=== PATIENT | female | born 1945 | race Caucasian/White ===

== ENCOUNTER 2016-03-19 11:13 | Outpatient (RCR) | payer MEDICARE ==
[~2016-03-19 11:13] MED LIST: ASPI-86 PO; BENICAR PO; CALC1CAP19 PO; CELEBREX PO; DIPH25TA82 PO; FEXO-104 PO; HYDR-3583 PO; LEVO5TAB2 PO; LEVO88TA28 PO; MNTL10T PO; MULT-305 PO; NASONEX; NF-TRA/ACE PO; OLME1TAB22 PO; PANT40TA PO; POTA10CA43 PO; POTA20TA7 PO; PRILOSEC; QUIN324C PO; SIMV80TA3 PO; SLMFT1E INH; VITA150T PO; [UNRECOGNIZED DRUG - CODE] PO; [UNRECOGNIZED DRUG - OTHER] PO
[2016-04-17] MEDS ORDERED: BACL10TA PO (12:59)
[2016-04-17] MEDS ORDERED: MELA1TAB20 PO (12:59)
[2016-04-17] MEDS ORDERED: BIOT800T PO (12:59)
[2016-04-17] MEDS ORDERED: FLUT9.9S NSEACH (12:59)
[2016-04-17] MEDS ORDERED: EPLE50TA3 PO (12:59)
[2016-04-17] MEDS ORDERED: CELE-63 PO (12:59)
[2016-04-17] MEDS ORDERED: LOSA100T28 PO (12:59)
[2016-04-17] MEDS ORDERED: LEVO5TAB12 PO (12:59)
[2016-04-17] MEDS ORDERED: FURO40TA4 PO (12:59)
[2016-04-17] MEDS ORDERED: ASPI-586 PO (12:59)
[2016-04-17] MEDS ORDERED: VITA200T7 PO (12:59)
[2016-04-17] MEDS ORDERED: ASCO-262 PO (12:59)
[2016-04-17] MEDS ORDERED: CHOL200014 PO (13:00)
== END 2016-06-17 | disposition home or self-care (01) ==
LOC: EDSTATUS 11:13 → LAB 11:13
PROVIDERS: ATTEND Internal Medicine
DX: R19.7 Diarrhea, unspecified (principal)
CPT/HCPCS: 87324

== ENCOUNTER 2016-04-14 15:31 | Outpatient (RCR) | payer MEDICARE ==
[2016-04-17] MEDS ORDERED: BIOT800T PO (12:59)
[2016-04-17] MEDS ORDERED: FLUT9.9S NSEACH (12:59)
[2016-04-17] MEDS ORDERED: EPLE50TA3 PO (12:59)
[2016-04-17] MEDS ORDERED: LEVO5TAB12 PO (12:59)
[2016-04-17] MEDS ORDERED: ASCO-262 PO (12:59)
[2016-04-17] MEDS ORDERED: LOSA100T28 PO (12:59)
[2016-04-17] MEDS ORDERED: FURO40TA4 PO (12:59)
[2016-04-17] MEDS ORDERED: BACL10TA PO (12:59)
[2016-04-17] MEDS ORDERED: VITA200T7 PO (12:59)
[2016-04-17] MEDS ORDERED: CELE-63 PO (12:59)
[2016-04-17] MEDS ORDERED: MELA1TAB20 PO (12:59)
[2016-04-17] MEDS ORDERED: ASPI-586 PO (12:59)
[2016-04-17] MEDS ORDERED: CHOL200014 PO (13:00)
== END 2016-07-13 | disposition home or self-care (01) ==
LOC: LAB 15:31
PROVIDERS: ATTEND Internal Medicine
DX: R19.7 Diarrhea, unspecified (principal)
CPT/HCPCS: 82274; 87045; 87046

== ENCOUNTER 2016-04-17 05:50 | Outpatient (CLI) | payer MEDICARE ==
[~2016-04-17] VITALS: Ht 153.7 cm; Wt 63.5 kg
[2016-04-17] MEDS ORDERED: EPLE50TA3 PO (12:59)
[2016-04-17] MEDS ORDERED: BACL10TA PO (12:59)
[2016-04-17] MEDS ORDERED: ASPI-586 PO (12:59)
[2016-04-17] MEDS ORDERED: BIOT800T PO (12:59)
[2016-04-17] MEDS ORDERED: CELE-63 PO (12:59)
[2016-04-17] MEDS ORDERED: LEVO5TAB12 PO (12:59)
[2016-04-17] MEDS ORDERED: LOSA100T28 PO (12:59)
[2016-04-17] MEDS ORDERED: MELA1TAB20 PO (12:59)
[2016-04-17] MEDS ORDERED: ASCO-262 PO (12:59)
[2016-04-17] MEDS ORDERED: FLUT9.9S NSEACH (12:59)
[2016-04-17] MEDS ORDERED: FURO40TA4 PO (12:59)
[2016-04-17] MEDS ORDERED: VITA200T7 PO (12:59)
[2016-04-17] MEDS ORDERED: CHOL200014 PO (13:00)
--- NOTE | 2016-04-18 06:53 | Pre-Op Note & Conscious Sedat ---
Pre-Operative Progress Note H&P Reviewed The H&P was reviewed, patient examined and no changes noted. Date H&P Reviewed: Apr 18, 2016 Time H&P Reviewed: 06:53 Conscious Sedation Pre-Proced ASA Class: 2 Airway Mallampati Classification: (pilot station appropriate class) I. II. III, IV Lungs Heart ASA score ASA 1: a normal healthy patient ASA 2: a patient with a mild systemic disease (mid diabetes, controlled hypertension, obesity ASA 3: a patient with a severe systemic disease that limits activity (angina , COPD, prior Myocardial infarction) ASA 4: a patient with an incapacitating disease that is a constant threat to life (CHF, renal failure) ASA 5: a moribund patient not expected to survive 24 hrs. (ruptured aneurysm) ASA 6: a declared brain patient whose organs are being harvested. For emergent operations, add the letter E after the classification Grade 3 Sedation Plan: Analgesia, Amnesia, Plan communicated to team members, Discussed options with patient/fam, Discussed risks with patient/fam Note The patient is an appropriate candidate to undergo the planned procedure, sedation, and anesthesia. The patient immediately re-assessed prior to indication. LETTY MARIA MD Apr 18, 2016 06:53
== END 2016-04-17 13:02 ==
LOC: PREOP 05:50
PROVIDERS: ATTEND Internal Medicine
DX: Z01.818 Encounter for other preprocedural examination (principal); Z12.11 Encounter for screening for malignant neoplasm of colon

== ENCOUNTER 2016-04-18 06:57 | Day surgery (SDC) | payer MEDICARE ==
[~2016-04-18] VITALS: Ht 153.7 cm; Wt 63.5 kg
[~2016-04-18 06:57] MED LIST changes: +ASCO-262 PO; +ASPI-586 PO; +BACL10TA PO; +BIOT800T PO; +CELE-63 PO; +CHOL200014 PO; +EPLE50TA3 PO; +FLUT9.9S NSEACH; +FURO40TA4 PO; +LEVO5TAB12 PO; +LOSA100T28 PO; +MELA1TAB20 PO; +VITA200T7 PO
[2016-04-18] MEDS ORDERED: LIDOCAINE JELLY 2% (XYLOCAINE) 5 ML TUBE MM PRN (07:00)
[2016-04-18] MEDS ORDERED: NALOXONE 0.4 MG/ML 1 ML (NARCAN) VIAL IVP PRN (07:00)
[2016-04-18] MEDS ORDERED: fentaNYL INJECTION 100 MCG/2 ML AMP IVP PRN (07:00)
[2016-04-18] MEDS ORDERED: 1/2 NS IV SOLUTION 1,000 ML IV STA (07:00)
[2016-04-18] MEDS ORDERED: MIDAZOLAM 2 MG/2 ML (VERSED) VIAL IVP PRN (07:00)
[2016-04-18] MEDS ORDERED: FLUMAZENIL (ROMAZICON) 0.1 MG/ML 5 ML VIAL INJ PRN (07:00)
[2016-04-18 07:20] VITALS: BP 137/71
--- NOTE | 2016-04-18 07:26 | HISTORY AND PHYSICAL ---
DICTATING PHYSICIAN: Dr. Santacruz DATE OF ADMISSION: 04/18/2016 Francesca is a 71-year-old white female who reports a several month history of diarrhea initially was improved on Flagyl despite negative C. diff. studies but now there has been recurrence 3 to 4 loose stools per day. She underwent stool for occult blood check, which was positive on 04/14/2016. For ongoing diarrhea with occult positive blood in her stools she is set up for colonoscopy on the . She has not noted any red blood per rectum or melena. It has been a little over 10 years since her last colonoscopy and probably closer to 20. Her weight has been stable. Blood pressure was 98/60. CHEST: Clear. CV: Revealed a regular rate and rhythm without murmur, S3 or S4. EXTREMITIES: Reveal no cyanosis, clubbing, or edema. ABDOMEN: Soft, supple without masses, organomegaly. There is some mild left lower quadrant discomfort to palpation. ASSESSMENT: For further evaluation of diarrhea and occult positive blood in his stool, the patient was set-up for colonoscopy on Prep instructions with the Ramsey-prep kit were given and questions were answered. Job ID: [id number] Dictated Date: 04/16/2016 16:07:00 Rn L And D Date: 04/17/2016 09:08:24/bebe
[2016-04-18] MEDS ORDERED: LIDOCAINE JELLY 2% (XYLOCAINE) 5 ML TUBE ONE (07:33)
[2016-04-18] MEDS ORDERED: fentaNYL INJECTION 100 MCG/2 ML AMP ONE (07:33)
[2016-04-18] MEDS ORDERED: MIDAZOLAM 2 MG/2 ML (VERSED) VIAL ONE (07:34)
[2016-04-18 08:25] VITALS: BP 113/62
[2016-04-18 08:55] VITALS: BP 133/68
--- NOTE | 2016-04-18 12:31 | PROCEDURE REPORT ---
PROCEDURE PHYSICIAN: LETTY MARIA DATE OF PROCEDURE: 04/18/2016 Colonoscopy was performed for screening purposes. PROCEDURE: The patient was placed in left lateral decubitus position. Prior to undergoing colonoscopy, digital rectal evaluation was performed. Anal sphincter tone was normal. The perianal reflux was intact. No abnormalities were noted to digital inspection of the anal canal or distal rectal vault. The colonoscope was then inserted into the rectum and under visualization, advanced to the cecum. The cecum was identified by identification of the ileocecal valve and cecal strap. Distal several centimeters of terminal ileum were inspected as well. Photographic documentation was obtained. A careful inspection was made as the colonoscope was withdrawn. The patient tolerated the procedure well. FINDINGS: There are no evidence for internal or external hemorrhoids and the rectum was unremarkable. The patient had been experiencing diarrhea and is on high-dose nonsteroidal medication in the form of celecoxib. For this reason a biopsy was obtained from the rectum to evaluate for microscopic colitis. Several small sigmoid diverticulum were present, without evidence for haustral hypertrophy or diverticulitis. The sigmoid colon was otherwise unremarkable. The descending colon, splenic flexure, transverse colon, hepatic flexure, ascending colon and cecum were unremarkable as was distal several centimeters of terminal ileum. ASSESSMENT: Mild diverticular disease without evidence for diverticulitis is noted confined to the sigmoid colon. This was an otherwise normal colonoscopy to the cecum, including distal several centimeters of terminal ileum. The patient has been having some diarrhea despite using mwlk-okr-qjexqti Imodium at home. As she is on high-dose nonsteroidal therapy we did obtain a biopsy for microscopic colitis, pending at the time of this dictation. Considering today's findings age and lack of family history for colon cancer will not likely be advocating future screening colonoscopy. Job ID: [id number] Dictated Date: 04/18/2016 08:22:29 Fashion Coordinator Date: 04/18/2016 12:26:20 / bebe
== END 2016-04-18 09:08 | disposition home or self-care (01) ==
LOC: SDC 06:57
PROVIDERS: ATTEND Internal Medicine
DX: Z12.11 Encounter for screening for malignant neoplasm of colon (principal); R19.7 Diarrhea, unspecified; K57.30 Diverticulosis of large intestine without perforation or abscess without bleeding

== ENCOUNTER → 2016-10-23 | Outpatient (CLI) | payer MEDICARE ==
--- NOTE | 2016-10-23 15:55 | Diagnostic Imaging Report ---
Bilateral screening mammogram 2D views with tomosynthesis The current study was also evaluated with a Computer Aided Detection (CAD) system. INDICATION: Screening. No current complaints stated on the questionnaire. COMPARISON: 09/03/2015. FINDINGS: The breasts are composed of heterogeneously dense parenchyma which may decrease mammographic sensitivity. Scattered benign-appearing calcifications are seen. Allowing for technique and positional differences, no suspicious change is seen. IMPRESSION: No significant change. ACR BI-RADS Category 2: Benign findings. Result letter will be mailed to the patient. Note: At least 10% of breast cancer is not imaged by mammography. Dictated by: Dictated on workstation # [id number]
== END ==
LOC: RAD 10:34
PROVIDERS: ATTEND Internal Medicine
DX: Z12.31 Encounter for screening mammogram for malignant neoplasm of breast (principal)
CPT/HCPCS: 77067

== ENCOUNTER → 2017-12-07 | Outpatient (CLI) | payer MEDICARE ==
[~2017-12-07] MED LIST changes: -CHOL200014 PO; +CHOL200085 PO; -LOSA100T28 PO; +LOSA100T8 PO
== END ==
LOC: LAB 14:12
PROVIDERS: ATTEND Internal Medicine
DX: N39.0 Urinary tract infection, site not specified (principal)
CPT/HCPCS: 87077; 87088; 87186

== ENCOUNTER → 2017-12-24 | Outpatient (CLI) | payer MEDICARE ==
--- NOTE | 2017-12-25 19:25 | Diagnostic Imaging Report ---
The current study was also evaluated with a Computer Aided Detection (CAD) system. 3-D tomosynthesis was also performed and reviewed. INDICATION: Digital mammogram bilateral screening. This study was compared to the prior exams of 10/23/2016, 09/03/2015 and 07/26/2014. At this time, there are no current complaints. FINDINGS: There are scattered fibroglandular densities in both breasts which could obscure a lesion. Overall, there does not appear to have been any significant change when compared to the prior exam. No primary or secondary sign of malignancy is noted. IMPRESSION: There is no radiographic evidence for malignancy. ACR BI-RADS Category 1: Negative. Result letter will be mailed to the patient. Note: At least 10% of breast cancer is not imaged by mammography. Dictated by: Dictated on workstation # [id number]
== END ==
LOC: RAD 10:21
PROVIDERS: ATTEND Internal Medicine
DX: Z12.31 Encounter for screening mammogram for malignant neoplasm of breast (principal)
CPT/HCPCS: 77067

== ENCOUNTER → 2018-02-15 | Outpatient (CLI) | payer MEDICARE ==
--- NOTE | 2018-02-15 15:13 | Diagnostic Imaging Report ---
PROCEDURE: MRI left upper extremity without contrast. TECHNIQUE: Multiplanar, multisequence non contrast-enhanced MRI of the left upper extremity was accomplished. INDICATION: Fall with left shoulder pain. COMPARISON: None. FINDINGS: There are mild degenerative changes in the left glenohumeral joint. Rxhebaer-kt-iquosx degenerative changes are seen in the left acromioclavicular joint. There is cranial migration of the humeral head with near-complete loss of the acromiohumeral space. A moderate glenohumeral joint effusion is present, with distention of the superior subscapularis recess. Multiple small joint bodies are present. The largest measures approximately 5 mm in diameter. There are subcortical cyst-like changes at the undersurface of the acromion. There is a full-thickness tear of the supraspinatus and infraspinatus tendons, which appear complete. There is retraction of the tendons approximately 5 cm, medial to the glenohumeral joint. There is marked atrophy of the respective musculature. The subscapularis tendon demonstrates tendinosis with mild intrasubstance tearing. The teres minor tendon appears intact. The long head of the biceps tendon is dislocated medially from the bicipital groove. There is mild tendinopathy of the proximal biceps tendon. The glenoid labrum is suboptimally evaluated in the absence of contrast, but there is likely degenerative tearing. The spinoglenoid and suprascapular notches appear clear. The coracoclavicular and coracoacromial ligaments appear intact. No axillary lymphadenopathy is seen. The soft tissues are otherwise unremarkable. IMPRESSION: 1. Large left shoulder rotator cuff tear, with complete tears of the supraspinatus and infraspinatus tendons and associated muscular atrophy. 2. Intrasubstance tearing and tendinosis of the subscapularis tendon, with medial dislocation of the biceps tendon from the bicipital groove. 3. Moderate left shoulder joint effusion with multiple joint bodies. 4. Complete loss of the acromiohumeral space with degenerative changes at the undersurface of the acromion. Dictated by: Dictated on workstation # [id number]
== END ==
LOC: RAD 11:37
PROVIDERS: ATTEND Orthopaedic Surgery
DX: S46.012A Strain of muscle(s) and tendon(s) of the rotator cuff of left shoulder, initial encounter (principal); M67.814 Other specified disorders of tendon, left shoulder; M19.012 Primary osteoarthritis, left shoulder; W19.XXXA Unspecified fall, initial encounter
CPT/HCPCS: 73221

== ENCOUNTER → 2018-05-21 | Outpatient (CLI) | payer MEDICARE ==
[~2018-05-21] MED LIST changes: +CHOL200014 PO; -CHOL200085 PO; +LOSA100T57 PO; -LOSA100T8 PO
--- NOTE | 2018-05-21 13:40 | Diagnostic Imaging Report ---
EXAM: CT right knee without contrast. DATE: May 21, 2018. INDICATION: 73-year-old female, right knee pain. Surgical planning. COMPARISON: None. TECHNIQUE: Axial CT images of the knee without contrast were obtained. Coronal and sagittal reformats were obtained and provided. Axial CT images at the level of the hip and ankle were also obtained for measurements of femoral version and tibial torsion and surgical planning. FINDINGS: The angle along the femoral neck axis relative to horizontal measures 11 degrees. The angle along the posterior femoral condyles relative to horizontal measures 6 degrees. This is a femoral version angle of 5 degrees. The angle along the posterior tibial condyles relative to horizontal measures 3 degrees. The angle along the intermalleolar axis relative to horizontal measures 35 degrees. This is a tibial torsion angle of 32 degrees. There are limitations of evaluation given lack of coronal and sagittal reformats. This does notably limit assessment of the medial and lateral compartments of the knee. There is severe patellofemoral compartment joint space loss with osteophyte formation. There is a small knee joint effusion. There is a probable ossified intra-articular body posteriorly measuring approximately 8 x 4 mm in size on axial image 112. There is no identified acute fracture. There is no aggressive bone lesion. IMPRESSION: 1. Limitations of evaluation given lack of coronal and sagittal reformats. 2. At least severe patellofemoral compartment osteoarthritis in the right knee with probable ossified intra-articular body posteriorly. 3. Femoral version and tibial torsion measurements as above. Dictated by: Dictated on workstation # [id number]
== END ==
LOC: RAD 09:57
PROVIDERS: ATTEND Orthopaedic Surgery
DX: Z01.818 Encounter for other preprocedural examination (principal); M17.11 Unilateral primary osteoarthritis, right knee
CPT/HCPCS: 73700

== ENCOUNTER 2018-06-09 09:13 | Outpatient (CLI) | payer MEDICARE ==
[~2018-06-09] VITALS: Ht 153.7 cm; Wt 72.6 kg
--- NOTE | 2018-06-09 09:00 | NUR ---
NORM CEMETERY COUNSELOR SHOWN EKG AND VISITED WITH PT, NO NEW ORDERS RECEIVED.
[~2018-06-09 09:13] MED LIST changes: +FLUT9.9S NS; -FLUT9.9S NSEACH
[2018-06-09] MEDS ORDERED: PANT40TA3 PO (09:40)
[2018-06-09] MEDS ORDERED: MULT-178 PO (09:40)
[2018-06-09] MEDS ORDERED: LEVO88TA54 PO (09:40)
[2018-06-09] MEDS ORDERED: VITA1CAP PO (09:40)
[2018-06-09] MEDS ORDERED: CA/D1TAB7 PO (09:40)
[2018-06-09] MEDS ORDERED: BIOT5000 PO (09:40)
[2018-06-09] MEDS ORDERED: MAGN400T7 PO (09:40)
[2018-06-09] MEDS ORDERED: POTA-51 PO (09:40)
[2018-06-09] MEDS ORDERED: CHOL10003 PO (09:40)
[2018-06-09] MEDS ORDERED: VITA-244 PO (09:40)
[2018-06-09] MEDS ORDERED: TRAM1TAB7 PO (09:40)
[2018-06-09] MEDS ORDERED: DILT180C PO (09:40)
[2018-06-09 09:44] VITALS: BP 104/63
[2018-06-09 10:17] LABS: BASOPHILS % (AUTO) 0 % (0-10); EOSINOPHILS % (AUTO) 0 % (0-10); HEMATOCRIT 40 % (35-52); HEMOGLOBIN 13.3 G/DL (11.5-16.0); LYMPHOCYTES # (AUTO) 1.2 X 10^3 (1.0-4.0); LYMPHOCYTES % (AUTO) 21 % (12-44); MEAN CORPUSCULAR HEMOGLOBIN 32 PG (25-34); MEAN CORPUSCULAR HGB CONC 33 G/DL (32-36); MEAN CORPUSCULAR VOLUME 95 FL (80-99); MEAN PLATELET VOLUME 11.3 FL (7.4-10.4); MONOCYTES # (AUTO) 0.7 X 10^3 (0.0-1.0); MONOCYTES % (AUTO) 12 % (0-12); NEUTROPHILS # (AUTO) 3.7 X 10^3 (1.8-7.8); NEUTROPHILS % (AUTO) 67 % (42-75); PLATELET COUNT 202 10^3/uL (130-400); RED CELL DISTRIBUTION WIDTH 12.8 % (10.0-14.5); WHITE BLOOD COUNT 5.5 10^3/uL (4.3-11.0)
[2018-06-09 10:18] LABS: BILIRUBIN,URINE NEGATIVE (NEGATIVE); CLARITY,URINE SLIGHTLY CLOUDY; COLOR,URINE YELLOW; GLUCOSE, URINE (UA) NEGATIVE (NEGATIVE); KETONES,URINE NEGATIVE (NEGATIVE); LEUKOCYTE ESTERASE ,URINE 2+ (NEGATIVE); NITRITE,URINE POSITIVE (NEGATIVE); PH,URINE 6 (5-9); PROTEIN,URINE NEGATIVE (NEGATIVE); UROBILINOGEN,URINE NORMAL (NORMAL)
[2018-06-09 10:27] LABS: BACTERIA,URINE LARGE /HPF; SQUAMOUS EPITHELIAL CELL,UR RARE /HPF
[2018-06-09 10:29] LABS: INR 0.9 (0.8-1.4); PROTHROMBIN TIME PATIENT 12.5 SEC (12.2-14.7)
[2018-06-09 10:35] LABS: ALBUMIN 4.3 GM/DL (3.2-4.5); BILIRUBIN,TOTAL 0.8 MG/DL (0.1-1.0); CALCIUM 9.7 MG/DL (8.5-10.1); CREATININE SERUM 1.26 MG/DL (0.60-1.30); POTASSIUM 4.6 MMOL/L (3.6-5.0); TOTAL PROTEIN 6.8 GM/DL (6.4-8.2)
[2018-06-09 10:55] LABS: ERYTHROCYTE SEDIMENTATION RATE 20 MM/HR (0-30)
--- NOTE | 2018-06-09 11:06 | Diagnostic Imaging Report ---
INDICATION: Evaluation prior to orthopedic surgery, knee replacement. TECHNIQUE: Two view chest 10:17 AM CORRELATION STUDY: 06/11/2012 FINDINGS: The heart size, mediastinal configuration and pulmonary vasculature are within normal limits. The lungs are clear with no consolidating infiltrate. There is no significant pleural effusion or pneumothorax. Advanced degenerative changes of the thoracic spine with marked disc space narrowing, endplate sclerosis and osteophyte formation. Partial visualization of a lumbar posterior spinal fixation hardware. [place] screws of the bilateral humeral heads. IMPRESSION: 1. Negative for acute cardiopulmonary abnormality. Dictated by: Dictated on workstation # [id number]
== END 2018-06-09 16:00 ==
LOC: PREOP 09:13
PROVIDERS: ATTEND Orthopaedic Surgery
DX: Z01.810 Encounter for preprocedural cardiovascular examination (principal); Z01.811 Encounter for preprocedural respiratory examination; Z01.812 Encounter for preprocedural laboratory examination; Z11.2 Encounter for screening for other bacterial diseases; M17.11 Unilateral primary osteoarthritis, right knee; R53.83 Other fatigue; R82.90 Unspecified abnormal findings in urine
CPT/HCPCS: 36415; 71046; 80053; 81000; 85025; 85610; 85652; 86850; 86900; 86901; 87081; 87088; 93005

== ENCOUNTER 2018-06-16 05:58 | Inpatient (IN) | payer MEDICARE ==
--- NOTE | 2018-06-07 11:14 | HISTORY AND PHYSICAL ---
DATE OF SERVICE: DATE OF ADMISSION: 06/16/2018 REASON FOR ADMISSION: Right total knee arthroplasty. HISTORY OF PRESENT ILLNESS: The patient is a 73-year-old female with longstanding progressive right knee pain. Radiographs reveal severe medial and patellofemoral arthrosis. She has undergone treatment with injections, arthroscopy and rest as well as anti-inflammatories without relief. Due to functional impairment and failure to improve with conservative measures, the patient elected to proceed with surgical intervention. REVIEW OF SYSTEMS: No chest pain, no shortness of breath. No dysuria. PAST MEDICAL HISTORY: Arthritis, thyroid disease, asthma, pancreatitis, seasonal rhinitis, lactose intolerance. PAST SURGICAL HISTORY: Cholecystectomy, bilateral rotator cuff, hysterectomy, foot surgery. SOCIAL HISTORY: The patient drinks alcohol rarely. Denies tobacco use. FAMILY HISTORY: Significant for hypertension, congestive heart failure. PRIMARY CARE PROVIDER: Dr. Santacruz. MEDICATIONS: 1. Potassium. 2. Pantoprazole. 3. Celebrex. 4. Levothyroxine. 5. Losartan. 6. Indapamide. 7. Levocetirizine. 8. Furosemide. 9. Nasonex. 10. Baclofen. ALLERGIES: SULFA and NEURONTIN. PHYSICAL EXAMINATION: GENERAL: The patient is well developed, well-nourished, in no acute distress. HEENT: Normocephalic, atraumatic. Pupils are equal, round, reactive to light. Oropharynx is clear. NECK: Supple, no lymphadenopathy. LUNGS: Clear to auscultation bilaterally. HEART: Regular rate and rhythm. ABDOMEN: Soft, nontender, nondistended. EXTREMITIES: The right knee demonstrates varus alignment. There is a slight effusion. No skin lesions are noted. The patient ambulates with an antalgic gait and needs assistance to arise from a seated position. There is no varus valgus laxity. Negative anterior and posterior drawer. Range of motion 0/3/125. IMPRESSION: Severe right knee osteoarthritis, unresponsive to conservative measures. PLAN: Right total knee arthroplasty. The risks, benefits, options, ramifications and recovery were discussed at length with the patient. She understands and wishes to proceed. Of note, she will require regular inpatient admission for pain management as well as gait abnormalities and weakness and associated comorbidities. Job ID: [id number] DocumentID: [id number] Dictated Date: 06/07/2018 09:32:58 Sheeting Puller Date: 06/07/2018 11:13:55 Dictated By: PATTY DAMIAN MD
--- NOTE | 2018-06-09 16:51 | NUR ---
MED REC WAS UPDATED BY [facility] NURSE AND FAXED TO ME FOR VERIFICATION. I REQUESTED A MED LIST TO BE FAXED OVER FROM [email or web address]. AFTER COMPARING THAT LIST TO WHAT WAS ENTERED I NEED TO CLARIFY WITH THE PATIENT THE BACLOFEN DIRECTIONS. ALSO SHE HAS NOT FILLED DILTIAZEM SINCE DECEMBER FOR A 60 DAY SUPPLY, AND THERE IS NO RECORD OF THE ULTRACET BEING FILLED. I CALLED THE PATIENT THIS AFTERNOON HOWEVER GOT AN ANSWERING MACHINE. I WILL TRY TO CONTACT THE PATIENT AGAIN TOMORROW FOR CLARIFICATION. I LEFT ALL THE OTC MEDS THEY WERE REPORTED BY [facility]. Addendum: 06/10/18 at 1341 by LINO BELLO [facility] CALLED AND SPOKE WITH THE PATIENT TODAY, SHE STATES SHE BROUGHT IN AN UPDATED MED LIST TO [facility] YESTERDAY AFTERNOON. [facility] NURSE CALLED AND SAID THERE WERE NO CHANGES FROM WHAT WAS ENTERED INTO THE COMPUTER. I VERIFIED THE THREE MEDICATIONS I HAD QUESTIONS ABOUT AND LEFT EVERYTHING ELSE IT WAS. SHE STATES SHE DOES TAKE HER BACLOFEN AT BEDTIME, SCHEDULED. SHE STATES THE ULTRACET IS SOMETHING SHE HAS NOT FILLED FOR QUITE SOME TIME BUT DOES HAVE IT ONE HAND AND RARELY TAKES IT. SHE STATES SHE DOES TAKE HER DILTIAZEM DAILY HOWEVER IT IS PAST DUE FOR REFILLS. I NOTED THE PAST DUE FILL DATE. [facility] FILLED: 06-04-18 PROTONIX 40MG DAILY #30 05-26-18 EPLERENONE 50MG DAILY #30 05-11-18 SYNTHROID 88MCG DAILY #90 05-11-18 XYZAL 5MG DAILY #90 05-11-18 BACLOFEN 10MG HS PRN #30 05-11-18 CELEBREX 200MG BID #90 05-11-18 FUROSEMIDE 40MG DAILY #90 04-24-18 FLONASE DAILY #16 04-06-18 KLOR-CON M20 BID #180 03-18-18 LOSARTAN 100MG DAILY #90 01-24-18 DILTIAZEM ER 180MG CAP #60 HS OTC MEDS REPORTED AT [facility]: [facility] MELATONIN MAG OX B COMPLEX VITAMIN E VITAMIN D CALTRATE BIOTIN VITAMIN C
[~2018-06-16] VITALS: Ht 153.7 cm; Wt 72.6 kg
[~2018-06-16 05:58] MED LIST changes: +BIOT5000 PO; +CA/D1TAB7 PO; +CHOL10003 PO; +DILT180C PO; +LEVO88TA54 PO; +MAGN400T7 PO; +MULT-178 PO; +PANT40TA3 PO; +POTA-51 PO; +TRAM1TAB7 PO; +VITA-244 PO; +VITA1CAP PO
[2018-06-16] MEDS ORDERED: LACTATED RINGERS 1,000 ML IV PRN (06:13)
[2018-06-16] MEDS ORDERED: CEFUROXIME INJECTION 1,500 MG in WATER (STERILE) FOR INJECTION 15 ML IV ONE (06:15)
[2018-06-16 06:25] VITALS: BP 130/64
[2018-06-16] MEDS ORDERED: CATHETER FLUSH 10 ML SYR IV PRN (06:30)
[2018-06-16] MEDS ORDERED: MIDAZOLAM 2 MG/2 ML (VERSED) VIAL ONE (06:45)
[2018-06-16] MEDS ORDERED: proPOfol 200 MG/20 ML (DIPRIVAN) VIAL IV ONE (06:45)
[2018-06-16] MEDS ORDERED: SEVOFLURANE (ULTANE) 15 ML INHAL SOLN ONE ×5 (06:45→08:57)
[2018-06-16] MEDS ORDERED: ONDANSETRON 4 MG/2 ML (SDV) Z0FRAN ONE (06:45)
[2018-06-16] MEDS ORDERED: DEXAMETHASONE 10 MG/ML (DECADRON) 1 ML VIAL ONE (06:45)
[2018-06-16] MEDS ORDERED: LIDOCAINE PF 2% 5 ML (XYLOCAINE) VIAL ONE (06:45)
[2018-06-16] MEDS ORDERED: BUPIVACAINE 0.25% 30 ML (SENSORCAINE) VIAL ONE (06:50)
[2018-06-16] MEDS ORDERED: fentaNYL INJECTION 100 MCG/2 ML AMP ONE ×2 (06:52→08:01)
--- NOTE | 2018-06-16 07:19 | Progress Note-Pre Operative ---
Pre-Operative Progress Note H&P Reviewed The H&P was reviewed, patient examined and no changes noted. Date Seen by Provider: Jun 16, 2018 Time Seen by Provider: 07:11 Date H&P Reviewed: Jun 16, 2018 Time H&P Reviewed: 07:11 Pre-Operative Diagnosis: right knee primary osteoarthritis PATTY DAMIAN MD Jun 16, 2018 07:19
--- NOTE | 2018-06-16 07:20 | Progress Note-Post Operative ---
Post-Operative Progess Note Surgeon (s)/Radio Electronics Technician (s) Surgeon PATTY DAMIAN MD Radio Electronics Technician: Go Wang Pre-Operative Diagnosis right knee primary osteoarthritis Post-Operative Diagnosis right knee primary osteorthritis Procedure & Operative Findings Date of Procedure 06/16/18 Procedure Performed/Findings right total knee arthroplasty Anesthesia Type GETA plus regional Estimated Blood Loss Estimated blood loss (mL): minimal Specimens/Packing Specimens Removed none Packing: none PATTY DAMIAN MD Jun 16, 2018 07:20
[2018-06-16] MEDS ORDERED: OXYC1TAB87 PO (07:21)
--- NOTE | 2018-06-16 07:24 | D/C HH Face to Face Order ---
D/C Face to Face Orders Instructions for Patient Via [facility], Patient Instructions/FollowUp: three weeks Physician to follow Patient: three weeks Discharge Diet for Home: Regular Diet Patient Data-Allergies,Ht & Wt Patient Allergies: Coded Allergies: Tomato (Verified Allergy, Intermediate, HIVES, 01/21/11) adhesive tape *RETIRED-12/12/11 (Verified Allergy, RASH, 01/21/11) Sulfa(Sulfonamide Antibiotics) (Verified Adverse Reaction, Intermediate, NAUSEA,, 01/15/11) lactose (Unverified Adverse Reaction, Intermediate, 06/14/12) FROM UNCODED ALLERGIES Uncoded Allergies: CHOCOLATE (Adverse Reaction, Intermediate, 01/21/11) DIARRHEA, AND HIVES Height (Feet): 5 Height (Inches): 0.50 Weight (Pounds): 160 Weight (Ounces): 0.0 Home Health Need/Face to Face Date of Face to Face: Jun 16, 2018 Clinical Findings: Instability, Muscle weakness, Pain with ambulation, Unsteady gait I have seen Pt iryh-ab-[id number]: Yes Discharged To: Home Diagnosis/Conditions: right total knee arthroplasty Patient is Homebound due to: Mary fall risk due to instabilty, Muscle weakness , Pain w/ambulation Homebound Status Due to the above stated illness, injury or surgical procedure (medical condition or diagnosis) and associated clinical findings, the patient is homebound because of his/her inability to leave home except with aid of a supportive device and/or person AND leaving the home requires a considerable and taxing effort or is medically contraindicated. Pt req the following assistanc: [facility] Nursing Orders Home Health Services Order: Physical Therapy-Evaluate & Treat Home Health Infusion Therapy Line Start Date: Jun 16, 2018 Line Start Time: 624 Line Type: Saline Lock Site Location: Wrist Therapy Orders Therapy Orders: Physical Therapy, PT to assess for OT Therapy Specific Orders: Eval assistive deivces, Teach enviro modifications/ safety, Gait training, Increase strength/endurance, Provider maintenance therapy , Restore ROM DC right knee lisandra and apply steri strips on 06/30/18 Certify Stmt I certify that this patient is under my care and that I, a nurse practitioner or a physician; a social science research assistant working with me, had a face to face encounter that - meets the physician face to face encounter requirements with this patient as dated. PATTY DAMIAN MD Jun 16, 2018 07:24
[2018-06-16] MEDS ORDERED: TRANEXAMIC ACID 100 MG/ML 10 ML INJECTION IV ONE (07:25)
[2018-06-16] MEDS ORDERED: ACETAMINOPHEN 325 MG TABLET PO PRN (07:30)
[2018-06-16] MEDS ORDERED: INTRA-ARTICULAR IU ONE ×5 (07:30)
[2018-06-16] MEDS ORDERED: morphine PCA 100 MG/100 ML BAG IV PRN (07:30)
[2018-06-16] MEDS ORDERED: diphenhydrAMINE 50 MG/ML INJ (BENADRYL) IVP PRN (07:30)
[2018-06-16] MEDS ORDERED: ONDANSETRON 4 MG/2 ML (SDV) Z0FRAN IVP PRN ×2 (07:30→09:45)
[2018-06-16] MEDS ORDERED: morphine INJ 10 MG/ML 1ML (SYR OR VIAL) ONE (08:43)
--- NOTE | 2018-06-16 09:18 | Consultation-Hospitalist ---
HPI History of Present Illness: HPI/Chief Complaint Chief complaint: Status post right knee replacement uncomplicated by Dr. Ayala , POD#0 HPI: This is a 73[address] Santacruz, with a past medical history of HTN, who presents to the fourth floor room 425 after an uncomplicated right knee replacement. is at the bedside along with the daughter. Pt reports she is ready to consume a clear liquid diet and reports the pain is controlled. Source: patient Date Seen 06/16/18 Attending Physician Nirav Ayala MD PCP Tristian Santacruz MD Referring Physician Date of Admission Jun 16, 2018 at 05:58 Home Medications & Allergies Home Medications Reviewed patient Home Medication Reconciliation performed by pharmacy medication reconciliations fire control technician and/or nursing. Patients Allergies have been reviewed. Allergies Allergies Coded Allergies tomato (Verified Allergy, Intermediate, HIVES, 01/21/11) adhesive tape (Verified Allergy, Unknown, RASH, 06/16/18) fentanyl (Verified Allergy, Unknown, 06/16/18) Sulfa (Sulfonamide Antibiotics) (Verified Adverse Reaction, Intermediate, NAUSEA,, 01/15/11) lactose (Unverified Adverse Reaction, Intermediate, 06/14/12) FROM UNCODED ALLERGIES Uncoded Allergies CHOCOLATE ( Adverse Reaction, Intermediate, 01/21/11) DIARRHEA, AND HIVES Past Kwgdnyf-Znpufk-Ydzymj Hx Past Med/Social Hx: Reviewed Nursing Past Med/Soc Hx, Reviewed and Corrections made Patient Social History Marrital Status: Employed/Student: retired Alcohol Use: Denies Use Recreational Drug Use: No Smoking Status: Never a Smoker Physical Abuse Screen: No Sexual Abuse: No Recent Foreign Travel: No Contact w/other who traveled: No Recent Hopitalizations: No Recent Infectious Disease Expo: No Immunizations Up To Date Tetanus Booster (TDap): Unknown Date of Influenza Vaccine: Jan 04, 2018 Seasonal Allergies Seasonal Allergies: Yes Past Medical History Surgeries: Hysterectomy Cardiac: Hypertension Reproductive: Yes (YEAST INFECTIONS) Sexually Transmitted Disease: No HIV/AIDS: No Female Reproductive Disorders: Denies Hysterectomy Gastrointestinal: Gastroesophageal Reflux, Pancreatitis, Chronic Diarrhea Musculoskeletal: Arthritis Endocrine: Hypothyroidsim Loss of Vision: Bilateral Hearing Impairment: Denies History of Blood Disorders: No Adverse Reaction to Blood Rawls: No (HAS HAD BLODD WITH NO REACTION) Review of Systems Constitutional: see HPI EENTM: no symptoms reported Respiratory: no symptoms reported Cardiovascular: no symptoms reported Gastrointestinal: no symptoms reported Genitourinary: no symptoms reported Musculoskeletal: joint pain Skin: no symptoms reported Psychiatric/Neurological: No Symptoms Reported All Other Systems Reviewed Negative Unless Noted: Yes Physical Exam Physical Exam Vital Signs Vital Signs - First Documented 06/16/18 11:13 O2 Flow Rate 2.00 Capillary Refill : Less Than 3 Seconds Height, Weight, BMI Height: 5'0.50" Weight: 160lbs. 0.0oz. [id number]; 30.7 BMI Method:Stated General Appearance: No Apparent Distress, WD/WN Eyes: Bilateral Eye Normal Inspection, Bilateral Eye PERRL HEENT: PERRL/EOMI, TMs Normal, Normal ENT Inspection, Pharynx Normal Neck: Full Range of Motion, Normal Inspection, Non Tender, Supple, Carotid Bruit Respiratory: Chest Non Tender, Lungs Clear, Normal Breath Sounds, No Accessory Muscle Use, No Respiratory Distress Cardiovascular: Regular Rate, Rhythm, No Edema, No Gallop, No JVD, No Murmur, Normal Peripheral Pulses Gastrointestinal: Normal Bowel Sounds, No Organomegaly, No Pulsatile Mass, Non Tender, Soft Back: Normal Inspection, No CVA Tenderness, No Vertebral Tenderness Extremity: Normal Capillary Refill, Normal Inspection, Normal Range of Motion ( except right leg in CPM machine), Non Tender, No Calf Tenderness, No Pedal Edema Neurologic/Psychiatric: Alert, Oriented x3, No Motor/Sensory Deficits, Normal Mood/Affect Skin: Normal Color, Warm/Dry Lymphatic: No Adenopathy Results Results/Procedures Labs Patient resulted labs reviewed. Assessment/Plan Assessment and Plan Assess & Plan/Chief Complaint Assessment: s/p right knee replacement uncomplicated POD # 0 HTN Chronic pancreatitis Chronic diarrhea Hypothyroidism DVT PPx with Lovenox Plan: Pain control Lovenox Check labs in am Home meds Diagnosis/Problems Diagnosis/Problems (1) Status post right knee replacement Status: Acute (2) Hypothyroidism Status: Chronic Qualifiers: Hypothyroidism type: acquired Qualified Codes: E03.9 - Hypothyroidism, unspecified (3) Hypertension Status: Chronic Qualifiers: Hypertension type: essential hypertension Qualified Codes: I10 - Essential (primary) hypertension (4) Other chronic pancreatitis Status: Chronic (5) GERD (gastroesophageal reflux disease) Status: Chronic Qualifiers: Esophagitis presence: without esophagitis Qualified Codes: K21.9 - Gastro- esophageal reflux disease without esophagitis (6) Osteoarthritis of right knee Status: Chronic Qualifiers: Osteoarthritis type: primary Qualified Codes: M17.11 - Unilateral primary osteoarthritis, right knee EMILY SAMPSON DO Jun 16, 2018 09:18
[2018-06-16] MEDS ORDERED: HYDROmorphone 2 MG/ML VIAL (DILAUDID) IV ONE (09:45)
[2018-06-16] MEDS ORDERED: MEPERIDINE (DEMEROL) INJ 50 MG/ML IVP ONE (09:45)
[2018-06-16] MEDS ORDERED: morphine INJ 10 MG/ML 1ML (SYR OR VIAL) IVP ONE ×2 (09:45→11:00)
--- NOTE | 2018-06-16 10:25 | NUR ---
TRANSFERRED FROM [facility]. PER BED. ALERT AND COOPERATIVE. SKIN W/D. RESP. REGULAR WITH O2 AT 3 L PER MIN PER N/C. V/S=121/59 P=90 RESP=16 O2 SAT=98 % WITH O2 ON AT 3 L PER MIN. PER N/C. IV SITE IN LEFT AC WITH IV FLUIDS INFUSING WELL. RIGHT KNEE DRESSING D/I WITH ABD AND HUANG WRAP INTACT. SCD TO LEFT LOWER LEG AND FOOR SCD TO RIGHT FOOT IN PLACE. FAMILY MEMBERS AT BEDSIDE.
--- NOTE | 2018-06-16 10:30 | Progress Note-Standard ---
Standard Progress Note Progress Notes/Assess & Plan Date Seen by a Provider: Jun 16, 2018 Time Seen by a Provider: 10:26 Progress/Assessment & Plan post op check no complaints denies paresthesthias radiographs--HW well positioned no fractures RLE--2 plus DP pulse with brisk cap refill. intact DF and PF of toes and ankle. sensation intact throughout s/p RTKA mobilize as able PATTY DAMIAN MD Jun 16, 2018 10:30
[2018-06-16] MEDS ORDERED: morphine INJ 4 MG/ML 1 ML (VIAL/SYRINGE) ONE (10:51)
[2018-06-16 11:13] VITALS: BP 121/59
--- NOTE | 2018-06-16 11:35 | Physical Therapy Evaluation ---
PT Evaluation-General Medical Diagnosis Admission Date Jun 16, 2018 at 05:58 Medical Diagnosis: Right knee OA Onset Date: Jun 16, 2018 Therapy Diagnosis Therapy Diagnosis: weakness abn gait Height/Weight Height (Feet): 5 Height (Inches): 0.50 Weight (Pounds): 160 Weight (Ounces): 0.0 Precautions Precautions/Isolations: Fall Prevention, Standard Precautions Weight Bear Status Right Lower Extremity: Right Weight Bearing/Tolerated Left Lower Extremity: Left Full Weight Bearing Referral Physician: adelfo Reason for Referral: Evaluation/Treatment Medical History Pertinent Medical History: Arthritis, HTN Additional Medical History CHF, B RCR, thyroid disease, asthma, pancreatitus Current History Admitted for right TKR Reviewed History: Yes Social History Home: Multilevel Current Living Status: Spouse Entry Into Home: Stairs With Railing PT Steps Into Home: 4 PT Steps Inside Home: 12 Prior/Core FIM Prior Level of Function Therapy Code Descriptions/Definitions Functional [place] Measure: 0=Not Assessed/NA 4=Minimal Assistance 1=Total Assistance 5=Supervision or Setup 2=Maximal Assistance 6=Modified [place] 3=Moderate Assistance 7=Complete [place] Therapy Quality Codes: 6 Independent with activity with or without an assistive device 5 Patient requires set up or clean up by helper. Patient completes activity by themselves 4 Supervision or touching assist (CGA). [place] provide cues , steadying assist 3 The helper provides less than half the effort to complete the activity 2 The helper provides more than half the effort to complete the activity 1 Dependent. The helper does all the effort to complete an activity 7 Patient refused to complete or attempt activity 9 The patient did not perform the activity before the current illness or injury 88 Not attempted due to Medical conditions or safety concerns Functional Abilities and Goals: Independent: Patient completed the activities by him/herself, with or without an assistive device, with no assistance from a helper. Needed Some Help: Patient needed partial assistance from another person to complete activities. Dependent: A helper completed the activities for the patient. Unknown: Not Applicable: Bed Mobility: 7 Transfers (B,C,W/C) (FIM): 7 Gait: 7 Stairs: 7 Indoor Mobility (Ambulation): Independent Stairs: Independent community ambulator and active. PT Evaluation-Current Subjective Pt agreeable to PT. no complaints. Objective Patient Orientation: Person, Place, Time, Situation Problem Solving: Good Attachments: Oxygen ROM/Strength ROM Lower Extremities left knee WNL Right knee 0-75 degrees in sitting. Strength Lower Extremities left knee 5/5; right knee 3/5 Integumentary/Posture Integumentary intact Bowel Incontinence: No Bladder Incontinence: No Posture normal and symmetrical Neuromuscular (Tone, Coordination, Reflexes) intact and functional Sensory Vision: Functional Hearing: Functional Sensation Right Lower Extremit: Intact Sensation Left Lower Extremity: Intact Transfers Therapy Code Descriptions/Definitions Functional [place] Measure: 0=Not Assessed/NA 4=Minimal Assistance 1=Total Assistance 5=Supervision or Setup 2=Maximal Assistance 6=Modified [place] 3=Moderate Assistance 7=Complete [place] Transfers (B, C, W/C) (FIM): 4 (CGA with cues for safety and sequencing. ) Supine to/from Sit: 4 (assit with right leg) Sit to/from Stand: 4 Gait Mode of Locomotion: Walk Anticipated Mode of Locomotion: Walk Comments/Gait Description Pt stood at EOB and took sidesteps with move towards the top of the bed. CGA with use of FWW. Balance Sitting Static: Good Sitting Dynamic: Good Standing Static: Good Standing Dynamic: Good Treatment Applied CPM 0-54 degrees. Assessment/Needs Post TKR right. Will benefit from ROM and strength trainihng to progress functional transfers and gait. 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 Alf Goals PT Alf Goals Time Frame: Jun 23, 2018 Transfers (B,C,W/C) (FIM): 7 Gait (FIM): 6 Gait distance (FIM): 3=150 ft Gait Assistive Device: FWW Stairs (FIM): 6 PT Plan Problem List Problem List: Activity Tolerance, Functional Strength, Safety, Balance, Gait, Transfer, Bed Mobility Treatment/Plan Treatment Plan: Continue Plan of Care Treatment Plan: Bed Mobility, Education, Functional Activity Sisi, Functional Strength, Gait, Safety, Therapeutic Exercise, Transfers Treatment Duration: Jun 23, 2018 Frequency: 11 times per week Estimated Hrs Per Day: 1 hour per day Patient and/or Family Agrees t: Yes Safety Risks/Education Patient Education: Transfer Techniques, Safety Issues Teaching Recipient: Patient Teaching Methods: Demonstration, Discussion Response to Teaching: Reinforcement Needed Discharge Recommendations Therapy D/C Recommendations: Physical Therapy Home Care Time/GCodes Time In: 1110 Time Out: 1135 Total Billed Treatment Time: 25 Total Billed Treatment visit EVM 25 CPM, pads SHARON TAN PT Jun 16, 2018 11:35
--- NOTE | 2018-06-16 11:47 | Diagnostic Imaging Report ---
INDICATION: Right knee surgery. TIME OF EXAMINATION: 9:48 AM. FINDINGS: Two views of the right knee demonstrate post operative changes of total knee arthroplasty. The prosthetic elements are in good position. No fracture or loosening is seen. There are overlying skin lisandra. IMPRESSION: Satisfactory postop appearance to the right knee. Dictated by: Dictated on workstation # [id number]
[2018-06-16 12:00] VITALS: BP 110/56
[2018-06-16] MEDS ORDERED: NON-FORMULARY MEDICATION 1 EA EA (Tramadol HCl/Acetaminophen (Tramadol-Acetaminophn 37.5-3 PO PRN (12:00)
[2018-06-16] MEDS: NS IV 1000 ML 1,000 ML IV SCH ×2 (12:46→21:57)
[2018-06-16] MEDS ORDERED: PATIENT MAY USE OWN MEDS, ALL MC SCH (13:00)
--- NOTE | 2018-06-16 13:49 | Physical Therapy Daily Note ---
PT Daily Note-Current Subjective Pt reports not having any pain right now, just a little sore. Agreeable to PT treatment, would like to walk and sit up in recliner Pain Numeric Pain Scale: 0-No Pain Comment: report of L knee soreness increasing with activity, denies pain Appearance Upon arrival, pt supine in bed with RLE in CPM and polar pack, awake and alert, present during treatment Pain pump utilized during session Pt requesting to sit on toilet during session, performed well At end of session, pt sitting up in recliner with Polar Pack on knee and on, call light, phone and bedside table within reach, all needs met, present in room with pt. Informed pt's nurse of pt's abilities and that pt is sitting up in recliner without CPM at this time. Mental Status Patient Orientation: Normal For Age Attachments: SCD's, Oxygen, Polar Pack, IV Transfers Therapy Code Descriptions/Definitions Functional [place] Measure: 0=Not Assessed/NA 4=Minimal Assistance 1=Total Assistance 5=Supervision or Setup 2=Maximal Assistance 6=Modified [place] 3=Moderate Assistance 7=Complete [place] Therapy Quality Codes: 6 Independent with activity with or without an assistive device 5 Patient requires set up or clean up by helper. Patient completes activity by themselves 4 Supervision or touching assist (CGA). [place] provide cues , steadying assist 3 The helper provides less than half the effort to complete the activity 2 The helper provides more than half the effort to complete the activity 1 Dependent. The helper does all the effort to complete an activity 7 Patient refused to complete or attempt activity 9 The patient did not perform the activity before the current illness or injury 88 Not attempted due to Medical conditions or safety concerns Transfers (B, C, W/C) (FIM): 4 Scootin Rollin Supine to/from Sit: 4 Sit to/from Stand: 5 Pt given instruction in safe and proper techniques for transitions (sit to from stand EOB, recliner and toilet), pt able to follow instruction and perform correctly without continued instruction. Pt demonstrating ability to maneuver RLE up and off CPM unit with min Assist Weight Bearing Right Lower Extremity: Right Weight Bearing/Tolerated Left Lower Extremity: Left Full Weight Bearing Gait Training Gait (FIM): 5 Distance (FIM): 1=up to 49 ft Distance: 10' x3 Gait Level of Assist: 5 Gait Persons Needed: 1 Gait Assistive Device: FWW Instruction and education on use of FWW, pt able to follow through with correct performance without continue instruction, slow steady sharif, slight decreased WB RLE, decreased step height and length, decreased hip and knee flexion BLE's, step through gait pattern but without exceeding opposite foot Exercises Seated Therapy Exercises: Sit to stand (x3 reps throughout tx session) Seated Reps: 10 (sitting heel slides with resistance eliminated using towel under R foot) Treatments bed mobility, transfer, gait, exercise to improve functional mobility, ROM, strength, activity tolerance Assessment Current Status: Good Progress PT Paper Reel Operator Goals Long-Term Goals PT Paper Reel Operator Goals Time Frame: Jun 23, 2018 Transfers (B,C,W/C) (FIM): 7 Gait (FIM): 6 Gait distance (FIM): 3=150 ft Gait Assistive Device: FWW Stairs (FIM): 6 PT Plan Treatment/Plan Treatment Plan: Continue Plan of Care Treatment Plan: Bed Mobility, Education, Functional Activity Sisi, Functional Strength, Gait, Safety, Therapeutic Exercise, Transfers Treatment Duration: Jun 23, 2018 Frequency: 11 times per week Estimated Hrs Per Day: 1 hour per day Patient and/or Family Agrees t: Yes Safety Risks/Education Patient Education: Gait Training, Transfer Techniques, Reviewed Use of Ice, Disease Process, Safety Issues Teaching Recipient: Patient Teaching Methods: Demonstration, Discussion Response to Teaching: Verbalize Understanding, Return Demonstration Time/GCodes Time In: 1305 Time Out: 1341 Total Billed Treatment Time: 36 Total Billed Treatment 1 visit, GT x1 unit, FA x1 unit LAUREL ARZOLA PTA Jun 16, 2018 13:49
--- NOTE | 2018-06-16 13:56 | OPERATIVE REPORT ---
DATE OF SERVICE: 06/16/2018 PREOPERATIVE DIAGNOSIS: Right knee primary osteoarthritis. POSTOPERATIVE DIAGNOSIS: Right knee primary osteoarthritis. PROCEDURE: Right total knee arthroplasty. SURGEON: Nirav Ayala MD. CIGARETTE SELLER: Go Wang, kate credentialing assistant throughout the procedure and closed the incision. ANESTHESIA: General plus regional block by Pillo Herman CRNA. TOURNIQUET TIME: Approximately 72 minutes at 300 mmHg. ESTIMATED BLOOD LOSS: Minimal. DRAINS: None. COMPLICATIONS: None. POSTOPERATIVE PLAN: Routine protocol. The patient was transferred to the recovery room, awake and in stable condition. MATERIALS: MicroPort cemented size 4 femur, cemented size 4 tibia with a 17 mm insert and cemented size 32 patellar button. STATEMENT OF MEDICAL NECESSITY: The patient is a 73-year-old female with longstanding progressive right knee pain. Radiographs revealed severe medial and patellofemoral arthrosis. She has undergone treatment with injections, rest, activity modifications without relief. Due to functional impairment and failure to improve with conservative measures, the patient elected to proceed with surgical intervention. DESCRIPTION OF PROCEDURE: After risks and benefits of procedure were discussed and questions were answered and informed consent was signed and placed on chart, the operative site was confirmed in the preoperative holding area initialed by the surgeon. The patient was then transferred to the operating room and after adequate levels of general endotracheal anesthetic were obtained, a timeout was called confirming the operative site. The right lower extremity was prepped and draped in the usual sterile fashion. With the leg elevated and the knee flexed, tourniquet was inflated to 300 mmHg. Standard anterior approach was utilized. Hemostasis was obtained with cautery. A medial parapatellar arthrotomy was performed leaving 1 cm cuff on the patellar for later reattachment. A portion of the fat pad was resected. The ACL was resected. Subperiosteal release was performed in the proximal medial tibia being careful to stay on the bony surface. The custom made block was placed distally and pinned into position. Distal cutting block was placed and distal cut was made. The 4 cutting block was placed parallel to the epicondylar axis and felt to be in excellent position. The cuts were then made from posterior to anterior. The trochlear guide was placed and the trochlear cut was made. The intramedullary guide was then passed into the tibia. The cutting block was placed. The drop inderjit transected at the intermalleolar axis and the cut was made. The four baseplate was positioned and felt to be in excellent position with a drop inderjit. This was pinned into position and then prepared with a drill and keel punch. The patella was then prepared using the free hand technique and resecting 10 mm off the undersurface. The peg guide was placed and the peg holes were drilled. The trials were inserted. A 17 mm insert provided full extension, greater than 120 degrees of flexion and no anterior/posterior or medial/lateral laxity in flexion or extension. The patella tracked well. The trials were removed. The joint was irrigated with pulse lavage. A periarticular block was placed in the posterior capsule, medial and lateral retinaculum and extensor mechanisms as well as subcutaneous tissues. The bone ends were irrigated and dried and the tibial baseplate was cemented in position. Excessive cement was removed. The superior surface was irrigated and dried and the polyethylene insert was placed. Distal femur was irrigated and dried and the femoral prosthesis was placed. Excessive cement was removed. The knee was brought out to full extension until the cement had cured. The undersurface of patella was irrigated and dried and the patellar button was cemented into position. Once the cement had cured, the knee was taken through a range of motion, full extension was easily obtained, 120 degrees of flexion with gravity was easily obtained. The patella tracked well. There was no anterior/posterior or medial/lateral laxity in flexion or extension. The joint was further irrigated with pulse lavage. Arthrotomy was closed with #2 Tev[place] in [id number] interrupted fashion. The knee was flexed. The patella tracked well. No undue tension was noted at the repair site. Subcutaneous tissues were irrigated. 2-0 Vicryl was used for the subcutaneous tissue superficially 0 Vicryl for the deep subcutaneous tissue, lisandra used on the skin. A soft dressing was applied. The tourniquet was deflated and the patient was then transferred to the recovery room awake and stable condition. Job ID: [id number] DocumentID: [id number] Dictated Date: 06/16/2018 09:25:00 Home Worker Date: 06/16/2018 13:55:00 Dictated By: NIRAV AYALA MD
[2018-06-16] MEDS: SENNA W/DOCUSATE (SENOKOT S) TABLET PO SCH ×2 (15:53→23:03)
[2018-06-16] MEDS: CEFUROXIME INJECTION 750 MG in WATER (STERILE) FOR INJECTION 10 ML IV SCH ×2 (15:53→23:04)
[2018-06-16] MEDS: oxyCODONE/APAP 5/325MG (PERCOCET 5) TABLET PO PRN (15:53)
[2018-06-16] MEDS: KCL 20 MEQ TAB (K-DUR) PO SCH (15:54)
[2018-06-16 16:00] VITALS: BP 95/54
[2018-06-16 20:00] VITALS: BP 95/50
--- NOTE | 2018-06-16 21:38 | NUR ---
PT REQUEST TO TAKE 2100 SCHEDULED MEDICATION UNTIL 2229
[2018-06-16] MEDS: MELATONIN 3 MG TABLET PO SCH (23:03)
[2018-06-16] MEDS: DILTIAZEM 180 MG (CARDIZEM CD) CAP PO SCH (23:06)
[2018-06-16] MEDS: BACLOFEN 10 MG (LIORESAL) TAB PO SCH (23:07)
[2018-06-17] VITALS (8 sets, daily range): BP systolic 93–119; BP diastolic 50–61
[2018-06-17] MEDS: MULTIVIT W/MINERALS TAB (THERAGRAN M) PO SCH ×2 (06:31→08:33)
[2018-06-17] MEDS: ENOXAPARIN 30 MG/0.3 ML (LOVENOX) SYR SC SCH ×2 (06:31→21:50)
[2018-06-17] MEDS: KCL 20 MEQ TAB (K-DUR) PO SCH ×3 (06:31→17:23)
[2018-06-17] MEDS: LEVOTHYROXINE 88 MCG (LEVOTHORID) TAB PO SCH (06:32)
[2018-06-17] MEDS: PANTOPRAZOLE 40 MG (PROTONIX) TAB PO SCH (06:36)
[2018-06-17 07:06] LABS: BASOPHILS % (AUTO) 0 % (0-10); EOSINOPHILS % (AUTO) 0 % (0-10); HEMATOCRIT 32 % (35-52); HEMOGLOBIN 10.3 G/DL (11.5-16.0); LYMPHOCYTES # (AUTO) 0.7 X 10^3 (1.0-4.0); LYMPHOCYTES % (AUTO) 6 % (12-44); MEAN CORPUSCULAR HEMOGLOBIN 32 PG (25-34); MEAN CORPUSCULAR HGB CONC 33 G/DL (32-36); MEAN CORPUSCULAR VOLUME 97 FL (80-99); MEAN PLATELET VOLUME 10.2 FL (7.4-10.4); MONOCYTES # (AUTO) 1.2 X 10^3 (0.0-1.0); MONOCYTES % (AUTO) 10 % (0-12); NEUTROPHILS # (AUTO) 9.8 X 10^3 (1.8-7.8); NEUTROPHILS % (AUTO) 84 % (42-75); PLATELET COUNT 166 10^3/uL (130-400); RED CELL DISTRIBUTION WIDTH 12.4 % (10.0-14.5); WHITE BLOOD COUNT 11.7 10^3/uL (4.3-11.0)
[2018-06-17 07:26] LABS: ALBUMIN 3.4 GM/DL (3.2-4.5); BILIRUBIN,TOTAL 0.5 MG/DL (0.1-1.0); CALCIUM 8.4 MG/DL (8.5-10.1); CREATININE SERUM 1.03 MG/DL (0.60-1.30); POTASSIUM 5.1 MMOL/L (3.6-5.0); TOTAL PROTEIN 5.4 GM/DL (6.4-8.2)
[2018-06-17 07:58] LABS: BAND NEUTROPHILS 4 %; BASOPHILS % (MANUAL) 0 %; EOSINOPHILS % (MANUAL) 0 %; LYMPHOCYTES % (MANUAL) 11 %; MONOCYTES % (MANUAL) 9 %; NEUTROPHILS % (MANUAL) 76 %; RBC MORPH NORMAL
--- NOTE | 2018-06-17 07:58 | Progress Note-Standard ---
Standard Progress Note Progress Notes/Assess & Plan Date Seen by a Provider: Jun 17, 2018 Time Seen by a Provider: 07:56 Progress/Assessment & Plan post op check no complaints denies paresthesthias radiographs--HW well positioned no fractures RLE--2 plus DP pulse with brisk cap refill. intact DF and PF of toes and ankle. sensation intact throughout s/p RTKA mobilize as able Final Diagnosis no complaints Vital Signs Date Time Temp Pulse Resp B/P (MAP) Pulse Ox O2 Delivery O2 Flow Rate FiO2 06/17/18 04:44 97.6 66 18 97/55 (69) 92 Nasal Cannula 1.00 06/17/18 03:03 94 Nasal Cannula 2.00 06/17/18 00:21 98.3 80 16 103/53 (70) 96 Room Air 06/16/18 22:14 98 Nasal Cannula 2.00 06/16/18 21:00 97 Room Air 06/16/18 20:00 96.4 77 18 95/50 (65) 98 06/16/18 18:58 93 Room Air 06/16/18 17:49 97 Nasal Cannula 3.00 06/16/18 16:00 96.6 80 16 95/54 (68) 95 Nasal Cannula 3.00 06/16/18 12:08 16 06/16/18 12:00 97.1 56 18 110/56 (74) 98 Nasal Cannula 3.00 06/16/18 11:13 98.2 87 16 121/59 94 Nasal Cannula 2.00 I & O 06/17/18 07:00 Intake Total 2205 ml Balance 2205 ml Laboratory Tests Test 06/17/18 06:55 Range/Units White Blood Count 11.7 H 4.3-11.0 10^3/uL Red Blood Count 3.26 L 4.35-5.85 10^6/uL Hemoglobin 10.3 L 11.5-16.0 G/DL Hematocrit 32 L 35-52 % Mean Corpuscular Volume 97 80-99 FL Mean Corpuscular Hemoglobin 32 25-34 PG Mean Corpuscular Hemoglobin Concent 33 32-36 G/DL Red Cell Distribution Width 12.4 10.0-14.5 % Platelet Count 166 130-400 10^3/uL Mean Platelet Volume 10.2 7.4-10.4 FL Neutrophils (%) (Auto) 84 H 42-75 % Lymphocytes (%) (Auto) 6 L 12-44 % Monocytes (%) (Auto) 10 0-12 % Eosinophils (%) (Auto) 0 0-10 % Basophils (%) (Auto) 0 0-10 % Neutrophils # (Auto) 9.8 H 1.8-7.8 X 10^3 Lymphocytes # (Auto) 0.7 L 1.0-4.0 X 10^3 Monocytes # (Auto) 1.2 H 0.0-1.0 X 10^3 Eosinophils # (Auto) 0.0 0.0-0.3 10^3/uL Basophils # (Auto) 0.0 0.0-0.1 10^3/uL Sodium Level 134 L 135-145 MMOL/L Potassium Level 5.1 H 3.6-5.0 MMOL/L Chloride Level 107 98-107 MMOL/L Carbon Dioxide Level 19 L 21-32 MMOL/L Anion Gap 8 5-14 MMOL/L Blood Urea Nitrogen 29 H 7-18 MG/DL Creatinine 1.03 0.60-1.30 MG/DL Estimat Glomerular Filtration Rate 53 BUN/Creatinine Ratio 28 Glucose Level 127 H 70-105 MG/DL Calcium Level 8.4 L 8.5-10.1 MG/DL Corrected Calcium 8.9 8.5-10.1 MG/DL Total Bilirubin 0.5 0.1-1.0 MG/DL Aspartate Amino Transf (AST/SGOT) 16 5-34 U/L Alanine Aminotransferase (ALT/SGPT) 13 0-55 U/L Alkaline Phosphatase 63 40-136 U/L Total Protein 5.4 L 6.4-8.2 GM/DL Albumin 3.4 3.2-4.5 GM/DL RLE--dressing intact. No calf tenderness. Neg Mulugeta's s/p RTKA doing well continue PT/OT likely DC tomorrow if continues to progress. PATTY DAMIAN MD Jun 17, 2018 07:58
[2018-06-17] MEDS: LOSARTAN 100 MG (COZAAR) TABLET PO SCH ×2 (08:31→08:51)
[2018-06-17] MEDS: FUROSEMIDE 40 MG (LASIX) TAB PO SCH ×2 (08:31→08:52)
[2018-06-17] MEDS: EPLERENONE 50 MG PO SCH ×2 (08:32→08:51)
[2018-06-17] MEDS: LEVOCETIRIZINE 5 MG PO SCH (08:32)
[2018-06-17] MEDS: FLUTICASONE NASAL SPRAY (FLONASE) 16 GM BTL NS SCH (08:32)
[2018-06-17] MEDS: NS IV 1000 ML 1,000 ML IV SCH ×2 (08:36→21:50)
[2018-06-17] MEDS: ASPIRIN E.C. 81 MG (ECOTRIN) TAB PO SCH (08:37)
[2018-06-17] MEDS: SENNA W/DOCUSATE (SENOKOT S) TABLET PO SCH ×2 (08:37→21:55)
[2018-06-17] MEDS: oxyCODONE/APAP 5/325MG (PERCOCET 5) TABLET PO PRN ×5 (08:38→21:55)
[2018-06-17] MEDS: MAGNESIUM OXIDE (MAG-OX)400 MG TAB PO SCH (08:39)
--- NOTE | 2018-06-17 08:50 | Anesthesia-General Post-Op ---
General Patient Condition Mental Status/LOC: Same as Preop Cardiovascular: Satisfactory Nausea/Vomiting: Absent Respiratory: Satisfactory Pain: Controlled Complications: Absent Post Op Complications Complications None Follow Up Care/Instructions Patient Instructions None needed. Anesthesia/Patient Condition Patient Condition Patient is doing well, no complaints, stable vital signs, no apparent adverse anesthesia problems. Patient had Adductor Canal block. No complication from regional. No complications reported per nursing. LIBAN MELARA CRNA Jun 17, 2018 08:50
--- NOTE | 2018-06-17 08:51 | NUR ---
DR. SAMPSON NOTIFIED OF LOW BP AND PULSE. HELD LASIX AND BP MEDS.
--- NOTE | 2018-06-17 09:38 | Progress Note-Hospitalist ---
Subjective HPI/CC On Admission Date Seen by Provider: Jun 17, 2018 Time Seen by Provider: 09:00 Chief complaint: Status post right knee replacement uncomplicated by Dr. Ayala , POD#0 HPI: This is a 73[address] Santacruz, with a past medical history of HTN, who presents to the fourth floor room 425 after an uncomplicated right knee replacement. is at the bedside along with the daughter. Pt reports she is ready to consume a clear liquid diet and reports the pain is controlled. Subjective/Events-last exam Pt doing well post-operatively. Had a BM last night. Will check labs in the morning but reviewed everything and has a Hgb of 10 Resumed all home medications but holding BP medication due to systolic of 90. Review of Systems Musculoskeletal: leg pain Objective Exam Vital Signs Vital Signs Date Time Temp Pulse Resp B/P (MAP) Pulse Ox O2 Delivery O2 Flow Rate FiO2 06/17/18 20:44 97.2 74 18 119/57 (77) 96 Room Air 06/17/18 10:57 2.00 Capillary Refill : Less Than 3 Seconds General Appearance: No Apparent Distress, WD/WN HEENT: PERRL/EOMI, TMs Normal, Normal ENT Inspection, Pharynx Normal Neck: Full Range of Motion, Normal Inspection, Non Tender, Supple, Carotid Bruit Respiratory: Chest Non Tender, Lungs Clear, Normal Breath Sounds, No Accessory Muscle Use, No Respiratory Distress Cardiovascular: Regular Rate, Rhythm, No Edema, No Gallop, No JVD, No Murmur, Normal Peripheral Pulses Gastrointestinal: Normal Bowel Sounds, No Organomegaly, No Pulsatile Mass, Non Tender, Soft Back: Normal Inspection, No CVA Tenderness, No Vertebral Tenderness Extremity: Normal Capillary Refill, Normal Inspection, Normal Range of Motion ( except right leg in CPM machine), Non Tender, No Calf Tenderness, No Pedal Edema Neurologic/Psychiatric: Alert, Oriented x3, No Motor/Sensory Deficits, Normal Mood/Affect Skin: Normal Color, Warm/Dry Lymphatic: No Adenopathy Results/Procedures Lab Laboratory Tests 06/17/18 06:55 Patient resulted labs reviewed. Assessment/Plan Assessment and Plan Assess & Plan/Chief Complaint Assessment: s/p right knee replacement uncomplicated POD # 1 HTN Chronic pancreatitis Chronic diarrhea Hypothyroidism DVT PPx with Lovenox Plan: Pain control Lovenox Check labs in am Home meds Diagnosis/Problems Diagnosis/Problems (1) Status post right knee replacement Status: Acute (2) Hypothyroidism Status: Chronic Qualifiers: Hypothyroidism type: acquired Qualified Codes: E03.9 - Hypothyroidism, unspecified (3) Hypertension Status: Chronic Qualifiers: Hypertension type: essential hypertension Qualified Codes: I10 - Essential (primary) hypertension (4) Other chronic pancreatitis Status: Chronic (5) GERD (gastroesophageal reflux disease) Status: Chronic Qualifiers: Esophagitis presence: without esophagitis Qualified Codes: K21.9 - Gastro- esophageal reflux disease without esophagitis (6) Osteoarthritis of right knee Status: Chronic Qualifiers: Osteoarthritis type: primary Qualified Codes: M17.11 - Unilateral primary osteoarthritis, right knee EMILY SAMPSON DO Jun 17, 2018 09:38
--- NOTE | 2018-06-17 09:54 | Physical Therapy Daily Note ---
PT Daily Note-Current Subjective Patient rates right knee pain 8/10 with meds being issued Pain Numeric Pain Scale: 8 Location: Right Location Body Site: Knee Pain Description: Acute Mental Status Patient Orientation: Normal For Age Attachments: IV Transfers Therapy Code Descriptions/Definitions Functional [place] Measure: 0=Not Assessed/NA 4=Minimal Assistance 1=Total Assistance 5=Supervision or Setup 2=Maximal Assistance 6=Modified [place] 3=Moderate Assistance 7=Complete [place] Therapy Quality Codes: 6 Independent with activity with or without an assistive device 5 Patient requires set up or clean up by helper. Patient completes activity by themselves 4 Supervision or touching assist (CGA). [place] provide cues , steadying assist 3 The helper provides less than half the effort to complete the activity 2 The helper provides more than half the effort to complete the activity 1 Dependent. The helper does all the effort to complete an activity 7 Patient refused to complete or attempt activity 9 The patient did not perform the activity before the current illness or injury 88 Not attempted due to Medical conditions or safety concerns Transfers (B, C, W/C) (FIM): 6 Scootin Supine to/from Sit: 6 Sit to/from Stand: 6 Weight Bearing Right Lower Extremity: Right Weight Bearing/Tolerated Left Lower Extremity: Left Full Weight Bearing Gait Training Gait (FIM): 6 Distance (FIM): 3=150 ft Distance: 300' x 2 Gait Level of Assist: 6 Gait Assistive Device: FWW antalgic, reciprocal pattern Stair Training Stair Training: Handrails/: 1 handrail, uses walker Stairs (FIM): 2 #of Steps: 3 Level of Assist: 5 Exercises Supine Ex: Ankle pumps, Quad Set, Heel Slides, Straight leg raise, Hip abd/add Supine Reps: 15 Seated Therapy Exercises: Long arc quads Seated Reps: 15 Assessment CPM 0-70 degrees with polar pack in place after treatment. Patient improving with treatment plan. PT Maintenance Planning Clerk Goals Maintenance Planning Clerk Goals PT Maintenance Planning Clerk Goals Time Frame: Jun 23, 2018 Transfers (B,C,W/C) (FIM): 7 Gait (FIM): 6 Gait distance (FIM): 3=150 ft Gait Assistive Device: FWW Stairs (FIM): 6 PT Plan Treatment/Plan Treatment Plan: Continue Plan of Care Treatment Plan: Bed Mobility, Education, Functional Activity Sisi, Functional Strength, Gait, Safety, Therapeutic Exercise, Transfers Treatment Duration: Jun 23, 2018 Frequency: 11 times per week Estimated Hrs Per Day: 1 hour per day Patient and/or Family Agrees t: Yes Time/GCodes Time In: 810 Time Out: 850 Total Billed Treatment Time: 40 Total Billed Treatment 1 visit EX 12 min GT 18 min FA 10 min SUJATHA WOLF PT Jun 17, 2018 09:54
--- NOTE | 2018-06-17 12:24 | NUR ---
CM/SS spoke with patient for discharge planning, patient likely to discharge 06/18/18. Patient would like [facility] for her PT. Patient will also need FWW at discharge. Paperwork sent to [facility] and DME.
--- NOTE | 2018-06-17 14:22 | Physical Therapy Daily Note ---
PT Daily Note-Current Subjective Patient is up in recliner and agrees to PT. Pain Numeric Pain Scale: 5-Moderate Pain Location: Right Location Body Site: Knee Pain Description: Acute Mental Status Patient Orientation: Normal For Age Attachments: IV Transfers Therapy Code Descriptions/Definitions Functional [place] Measure: 0=Not Assessed/NA 4=Minimal Assistance 1=Total Assistance 5=Supervision or Setup 2=Maximal Assistance 6=Modified [place] 3=Moderate Assistance 7=Complete [place] Therapy Quality Codes: 6 Independent with activity with or without an assistive device 5 Patient requires set up or clean up by helper. Patient completes activity by themselves 4 Supervision or touching assist (CGA). [place] provide cues , steadying assist 3 The helper provides less than half the effort to complete the activity 2 The helper provides more than half the effort to complete the activity 1 Dependent. The helper does all the effort to complete an activity 7 Patient refused to complete or attempt activity 9 The patient did not perform the activity before the current illness or injury 88 Not attempted due to Medical conditions or safety concerns Transfers (B, C, W/C) (FIM): 6 Scootin Sit to/from Stand: 6 Weight Bearing Right Lower Extremity: Right Weight Bearing/Tolerated Left Lower Extremity: Left Full Weight Bearing Gait Training Gait (FIM): 6 Distance (FIM): 3=150 ft Distance: 300' Gait Level of Assist: 6 Gait Assistive Device: FWW reciprocal pattern Stair Training Stair Training: Handrails/: 1 handrail, uses walker Stairs (FIM): 2 #of Steps: 3 Stairs: Pattern: Step to Level of Assist: 5 Exercises Seated Therapy Exercises: Ankle pumps, Long arc quads, Hip flexion Seated Reps: 15 Assessment Patient tolerated treatment well and remains up in recliner. Patient has performed stairs, 3 sets x 2. Plan dismissal tomorrow. PT [facility] Goals Piledriver Carpenter Goals PT Piledriver Carpenter Goals Time Frame: Jun 23, 2018 Transfers (B,C,W/C) (FIM): 7 Gait (FIM): 6 Gait distance (FIM): 3=150 ft Gait Assistive Device: FWW Stairs (FIM): 6 PT Plan Treatment/Plan Treatment Plan: Continue Plan of Care Treatment Plan: Bed Mobility, Education, Functional Activity Sisi, Functional Strength, Gait, Safety, Therapeutic Exercise, Transfers Treatment Duration: Jun 23, 2018 Frequency: 11 times per week Estimated Hrs Per Day: 1 hour per day Patient and/or Family Agrees t: Yes Time/GCodes Time In: 1250 Time Out: 1315 Total Billed Treatment Time: 25 Total Billed Treatment 1 visit EX 14 min GT 11 min SUJATHA WOLF PT Jun 17, 2018 14:22
--- NOTE | 2018-06-17 15:44 | Occupational Therapy Eval ---
OT Evaluation-General/PLF Medical Diagnosis Admission Date Jun 16, 2018 at 05:58 Medical Diagnosis: Right knee OA/TKR Onset Date: Jun 16, 2018 Therapy Diagnosis Therapy Diagnosis: Decreased ADL skills Height/Weight Height (Feet): 5 Height (Inches): 0.50 Weight (Pounds): 160 Weight (Ounces): 0.0 Precautions Precautions/Isolations: Fall Prevention, Standard Precautions Safety Interventions: None Weight Bear Status Weight Bearing Restriction: Weight Bearing/Tolerated Referral Physician: adelfo Referral Reason: Activity Tolerance, Self Care, Evaluation/Treatment, Strengthening/ROM Medical History Pertinent Medical History: Arthritis, HTN Additional Medical History thyroid disease, asthma, pancreatitis, bilateral rotator cuff repairs. Current History Pt. was currently receiving PT for left RCR. Reviewed History: Yes Social History Home: Multilevel Current Living Status: Spouse Entry Into Home: Stairs With Railing Steps Into Home: 4 Steps Inside Home: 12 ADL-Prior Level of Function Therapy Code Descriptions/Definitions Functional [place] Measure: 0=Not Assessed/NA 4=Minimal Assistance 1=Total Assistance 5=Supervision or Setup 2=Maximal Assistance 6=Modified [place] 3=Moderate Assistance 7=Complete [place] Therapy Quality Codes: 6 Independent with activity with or without an assistive device 5 Patient requires set up or clean up by helper. Patient completes activity by themselves 4 Supervision or touching assist (CGA). [place] provide cues , steadying assist 3 The helper provides less than half the effort to complete the activity 2 The helper provides more than half the effort to complete the activity 1 Dependent. The helper does all the effort to complete an activity 7 Patient refused to complete or attempt activity 9 The patient did not perform the activity before the current illness or injury 88 Not attempted due to Medical conditions or safety concerns Functional Abilities and Goals: Independent: Patient completed the activities by him/herself, with or without an assistive device, with no assistance from a helper. Needed Some Help: Patient needed partial assistance from another person to complete activities. Dependent: A helper completed the activities for the patient. Unknown: Not Applicable: ADL PLOF Comments Pt. states that she was independent with daily tasks, and that if she needed assistance, spouse would assist. Self Care: Independent Functional Cognition: Independent DME/Equipment: Tub/Shower DME/Equipment Comments Pt. does not have walker but will need one. Pt. and spouse also educated on tub /transfer bench. Both state that they don't think one will be necessary. 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 Appearance Pt. up in chair. Alert and oriented. Mental Status/Objective Patient Orientation: Person, Place, Time, Situation Attachments: IV Current Glasses/Contacts: Yes Upper Extremity ROM Limited in bilateral shoulders due to past RCR. ADL-Treatment Therapy Code Descriptions/Definitions Functional [place] Measure: 0=Not Assessed/NA 4=Minimal Assistance 1=Total Assistance 5=Supervision or Setup 2=Maximal Assistance 6=Modified [place] 3=Moderate Assistance 7=Complete [place] Therapy Quality Codes: 6 Independent with activity with or without an assistive device 5 Patient requires set up or clean up by helper. Patient completes activity by themselves 4 Supervision or touching assist (CGA). [place] provide cues , steadying assist 3 The helper provides less than half the effort to complete the activity 2 The helper provides more than half the effort to complete the activity 1 Dependent. The helper does all the effort to complete an activity 7 Patient refused to complete or attempt activity 9 The patient did not perform the activity before the current illness or injury 88 Not attempted due to Medical conditions or safety concerns Pt. states that she has been able to take herself to the bathroom, and has been managing with her toileting. Pt. is educated on toilet tongs if needed. Pt. does not need those. States that she does not think that she will have difficulty with LE dressing, but will have her spouse assist if needed. Pt. states that she will shower tomorrow, but would like to rest for now. Pt. is educated on AE. Pt. states that she is aware of what it is, as she has had a previous back surgery, but has not used it. OT offered to assist pt. with toileting as needed, or ambulation at this time. Pt. declines and states that she is doing well. OT will check on pt. tomorrow and educate on AE as needed. Will address all further needs tomorrow, as pt. is told to let therapy know if she has any concerns. Education OT Patient Education: Correct positioning, Progress toward Goal/Update tx plan , Purpose of tx/functional activities, Reviewed precautions, Rehab process Teaching Recipient: Patient, Significant Other Teaching Methods: Demonstration, Discussion Response to Teaching: Verbalize Understanding OT Short Term Goals Short Term Goals 1=Demonstrate adherence to instructed precautions during ADL tasks. 2=Patient will verbalize/demonstrate understanding of assistive devices/ modifications for ADL. 3=Patient will improve strength/tolerance for activity to enable patient to perform ADL's. OT Geographic Information Systems Engineer Goals Geographic Information Systems Engineer Goals Time Frame: Jun 18, 2018 Upper Body Dressing(FIM): 5 Lower Body Dressing(FIM): 5 Shower Transfer(FIM): 5 Additional Goals: 1-Demonstrate ADL Tasks, 2-Verbalize Understanding, 3- ImproveStrength/Sisi 1=Demonstrate adherence to instructed precautions during ADL tasks. 2=Patient will verbalize/demonstrate understanding of assistive devices/ modifications for ADL. 3=Patient will improve strength/tolerance for activity to enable patient to perform ADL's. OT Education/Plan Problem List/Assessment Assessment: Decreased Activ Tolerance, Impaired I ADL's, Impaired Self-Care Skills Discharge Recommendations Plan/Recommendations: Continue POC Therapy D/C Recommendations: Home w/ Family Support Equpiment Recommendations-D/C: Extended Bath Bench, Hip Kit Treatment Plan/Plan of Care Treatment,Training & Education: Yes Patient would benefit from OT for education, treatment and training to promote independence in ADL's, mobility, safety and/or upper extremity function for ADL' s. Plan of Care: ADL Retraining, Functional Mobility, UE Funct Exercise/Act Treatment Duration: Jun 18, 2018 Frequency: 1 time per week Estimated Hrs Per Day: .25 hour per day Agreement: Yes Rehab Potential: Good Time/GCodes Start Time: 13:55 Stop Time: 14:10 Total Time Billed (hr/min): 15 Billed Treatment Time 1, GINETTE GUTIERREZ OT Jun 17, 2018 15:44
--- NOTE | 2018-06-17 17:00 | NUR ---
KCL BLOOD LEVEL-5.1 HELD P[address]O. POTASSIUM
[2018-06-17] MEDS: BACLOFEN 10 MG (LIORESAL) TAB PO SCH (21:52)
[2018-06-17] MEDS: DILTIAZEM 180 MG (CARDIZEM CD) CAP PO SCH (21:55)
[2018-06-17] MEDS: MELATONIN 3 MG TABLET PO SCH (23:00)
[2018-06-18 04:30] VITALS: BP 113/58
[2018-06-18] MEDS: oxyCODONE/APAP 5/325MG (PERCOCET 5) TABLET PO PRN ×2 (04:34→09:36)
[2018-06-18 06:08] LABS: BASOPHILS % (AUTO) 0 % (0-10); EOSINOPHILS % (AUTO) 0 % (0-10); HEMATOCRIT 30 % (35-52); HEMOGLOBIN 9.6 G/DL (11.5-16.0); LYMPHOCYTES # (AUTO) 1.2 X 10^3 (1.0-4.0); LYMPHOCYTES % (AUTO) 20 % (12-44); MEAN CORPUSCULAR HEMOGLOBIN 32 PG (25-34); MEAN CORPUSCULAR HGB CONC 33 G/DL (32-36); MEAN CORPUSCULAR VOLUME 98 FL (80-99); MEAN PLATELET VOLUME 10.5 FL (7.4-10.4); MONOCYTES # (AUTO) 0.8 X 10^3 (0.0-1.0); MONOCYTES % (AUTO) 13 % (0-12); NEUTROPHILS % (AUTO) 66 % (42-75); PLATELET COUNT 149 10^3/uL (130-400); RED CELL DISTRIBUTION WIDTH 12.9 % (10.0-14.5); WHITE BLOOD COUNT 6.1 10^3/uL (4.3-11.0)
[2018-06-18 06:36] LABS: ALANINE AMINOTRANSFERASE 12 U/L (0-55); ALBUMIN 3.2 GM/DL (3.2-4.5); ALKALINE PHOSPHATASE 61 U/L (40-136); BILIRUBIN,TOTAL 0.4 MG/DL (0.1-1.0); BUN/CREATININE RATIO 25; CALCIUM 8.2 MG/DL (8.5-10.1); CARBON DIOXIDE 23 MMOL/L (21-32); CHLORIDE 112 MMOL/L (98-107); CREATININE SERUM 0.89 MG/DL (0.60-1.30); GFR ESTIMATED > 60; GLUCOSE 88 MG/DL (70-105); POTASSIUM 5.1 MMOL/L (3.6-5.0); SODIUM 140 MMOL/L (135-145)
[2018-06-18] MEDS: KCL 20 MEQ TAB (K-DUR) PO SCH (06:41)
[2018-06-18] MEDS: MULTIVIT W/MINERALS TAB (THERAGRAN M) PO SCH (06:46)
[2018-06-18] MEDS: LEVOTHYROXINE 88 MCG (LEVOTHORID) TAB PO SCH (06:46)
[2018-06-18] MEDS: PANTOPRAZOLE 40 MG (PROTONIX) TAB PO SCH (06:46)
--- NOTE | 2018-06-18 07:01 | Progress Note-Standard ---
Standard Progress Note Progress Notes/Assess & Plan Date Seen by a Provider: Jun 18, 2018 Time Seen by a Provider: 07:00 Progress/Assessment & Plan post op check no complaints denies paresthesthias radiographs--HW well positioned no fractures RLE--2 plus DP pulse with brisk cap refill. intact DF and PF of toes and ankle. sensation intact throughout s/p RTKA mobilize as able Final Diagnosis no complaints Vital Signs Date Time Temp Pulse Resp B/P (MAP) Pulse Ox O2 Delivery O2 Flow Rate FiO2 06/18/18 06:54 20 06/18/18 06:41 99 Nasal Cannula 2.00 06/18/18 04:30 98.6 75 20 113/58 (76) 97 Room Air 06/18/18 03:03 Nasal Cannula 2.00 06/17/18 23:59 97.7 61 22 102/61 (75) 96 Room Air 06/17/18 22:56 91 Nasal Cannula 2.00 06/17/18 21:45 107/52 (70) 06/17/18 21:00 Room Air 06/17/18 20:44 97.2 74 18 119/57 (77) 96 Room Air 06/17/18 15:30 98.2 77 18 93/50 (64) 92 Room Air 06/17/18 12:00 99.2 58 20 105/56 (72) 95 Room Air 06/17/18 10:57 Nasal Cannula 2.00 06/17/18 08:00 98.6 51 18 99/50 (66) 93 Nasal Cannula 2.00 I & O 06/18/18 07:00 Intake Total 2890 ml Balance 2890 ml Laboratory Tests Test 06/18/18 05:35 Range/Units White Blood Count 6.1 4.3-11.0 10^3/uL Red Blood Count 3.00 L 4.35-5.85 10^6/uL Hemoglobin 9.6 L 11.5-16.0 G/DL Hematocrit 30 L 35-52 % Mean Corpuscular Volume 98 80-99 FL Mean Corpuscular Hemoglobin 32 25-34 PG Mean Corpuscular Hemoglobin Concent 33 32-36 G/DL Red Cell Distribution Width 12.9 10.0-14.5 % Platelet Count 149 130-400 10^3/uL Mean Platelet Volume 10.5 H 7.4-10.4 FL Neutrophils (%) (Auto) 66 42-75 % Lymphocytes (%) (Auto) 20 12-44 % Monocytes (%) (Auto) 13 H 0-12 % Eosinophils (%) (Auto) 0 0-10 % Basophils (%) (Auto) 0 0-10 % Neutrophils # (Auto) 4.0 1.8-7.8 X 10^3 Lymphocytes # (Auto) 1.2 1.0-4.0 X 10^3 Monocytes # (Auto) 0.8 0.0-1.0 X 10^3 Eosinophils # (Auto) 0.0 0.0-0.3 10^3/uL Basophils # (Auto) 0.0 0.0-0.1 10^3/uL Sodium Level 140 135-145 MMOL/L Potassium Level 5.1 H 3.6-5.0 MMOL/L Chloride Level 112 H 98-107 MMOL/L Carbon Dioxide Level 23 21-32 MMOL/L Anion Gap 5 5-14 MMOL/L Blood Urea Nitrogen 22 H 7-18 MG/DL Creatinine 0.89 0.60-1.30 MG/DL Estimat Glomerular Filtration Rate > 60 BUN/Creatinine Ratio 25 Glucose Level 88 70-105 MG/DL Calcium Level 8.2 L 8.5-10.1 MG/DL Corrected Calcium 8.8 8.5-10.1 MG/DL Total Bilirubin 0.4 0.1-1.0 MG/DL Aspartate Amino Transf (AST/SGOT) 15 5-34 U/L Alanine Aminotransferase (ALT/SGPT) 12 0-55 U/L Alkaline Phosphatase 61 40-136 U/L Total Protein 5.0 L 6.4-8.2 GM/DL Albumin 3.2 3.2-4.5 GM/DL RLE--no calf tenderness. Neg Mulugeta's incision clean and dry s/p RTKA doing well DC later today PATTY DAMIAN MD Jun 18, 2018 07:01
[2018-06-18] MEDS ORDERED: morphine INJ 4 MG/ML 1 ML (VIAL/SYRINGE) IVP PRN (07:15)
--- NOTE | 2018-06-18 07:30 | DISCHARGE SUMMARY ---
DATE OF SERVICE: DIAGNOSES: 1. Right knee primary osteoarthritis. 2. Hypothyroidism. 3. Asthma. 4. History of pancreatitis. 5. Seasonal rhinitis. 6. Lactose intolerance. HISTORY: The patient is a 73-year-old female who was admitted of a right total knee arthroplasty, which she underwent without complications. Postoperatively, she did very well. She cleared physical therapy at the time of discharge. In addition, wound was clean and dry. She had no calf tenderness. Negative Homans sign. CONDITION ON DISCHARGE: Good. DISCHARGE DIET: Regular. FOLLOWUP: Followup is in three weeks. Home physical therapy has been arranged. DISCHARGE MEDICATIONS: Home medications, aspirin and Percocet as needed for pain. Job ID: [id number] DocumentID: [id number] Dictated Date: 06/17/2018 19:32:54 Centerless Grinder Operator Date: 06/18/2018 07:30:12 Dictated By: PATTY DAMIAN MD
[2018-06-18 08:00] VITALS: BP 99/55
[2018-06-18] MEDS: ASPIRIN E.C. 81 MG (ECOTRIN) TAB PO SCH (08:29)
[2018-06-18] MEDS: LOSARTAN 100 MG (COZAAR) TABLET PO SCH (08:29)
[2018-06-18] MEDS: SENNA W/DOCUSATE (SENOKOT S) TABLET PO SCH (08:29)
[2018-06-18] MEDS: MAGNESIUM OXIDE (MAG-OX)400 MG TAB PO SCH (08:29)
[2018-06-18] MEDS: ENOXAPARIN 30 MG/0.3 ML (LOVENOX) SYR SC SCH (08:30)
[2018-06-18] MEDS: EPLERENONE 50 MG PO SCH (08:31)
[2018-06-18] MEDS: LEVOCETIRIZINE 5 MG PO SCH (08:32)
[2018-06-18] MEDS: FUROSEMIDE 40 MG (LASIX) TAB PO SCH (08:32)
[2018-06-18] MEDS: FLUTICASONE NASAL SPRAY (FLONASE) 16 GM BTL NS SCH (08:34)
--- NOTE | 2018-06-18 09:24 | NUR ---
Patient's IV discontinued and Morphine 97cc wasted with JET Flores.
--- NOTE | 2018-06-18 09:35 | Physical Therapy Daily Note ---
PT Daily Note-Current Subjective Patient is very excited to go home today. Agrees to PT. Pain Numeric Pain Scale: 5-Moderate Pain Location: Right Location Body Site: Knee Pain Description: Acute Mental Status Patient Orientation: Normal For Age Attachments: Polar Pack Transfers Therapy Code Descriptions/Definitions Functional [place] Measure: 0=Not Assessed/NA 4=Minimal Assistance 1=Total Assistance 5=Supervision or Setup 2=Maximal Assistance 6=Modified [place] 3=Moderate Assistance 7=Complete [place] Therapy Quality Codes: 6 Independent with activity with or without an assistive device 5 Patient requires set up or clean up by helper. Patient completes activity by themselves 4 Supervision or touching assist (CGA). [place] provide cues , steadying assist 3 The helper provides less than half the effort to complete the activity 2 The helper provides more than half the effort to complete the activity 1 Dependent. The helper does all the effort to complete an activity 7 Patient refused to complete or attempt activity 9 The patient did not perform the activity before the current illness or injury 88 Not attempted due to Medical conditions or safety concerns Transfers (B, C, W/C) (FIM): 6 Scootin Rollin Supine to/from Sit: 6 Sit to/from Stand: 6 Bed to/from Chair: 6 Weight Bearing Right Lower Extremity: Right Weight Bearing/Tolerated Left Lower Extremity: Left Full Weight Bearing Gait Training Gait (FIM): 6 Distance (FIM): 3=150 ft Distance: 300' x 2 Gait Level of Assist: 6 Gait Assistive Device: FWW antalgic, reciprocal Stair Training Stair Training: Handrails/: 1 handrail, uses walker Stairs (FIM): 6 #of Steps: 12 Stairs: Pattern: Step to Level of Assist: 6 Exercises Supine Ex: Ankle pumps, Quad Set, Heel Slides, Straight leg raise Supine Reps: 15 Seated Therapy Exercises: Ankle pumps, Long arc quads Seated Reps: 15 Assessment Patient has been instructed to perform exercises per physician handout. Home Health PT to begin Thursday. PT Stationary Plant Operators Goals Stationary Plant Operators Goals PT Stationary Plant Operators Goals Time Frame: Jun 23, 2018 Transfers (B,C,W/C) (FIM): 7 Gait (FIM): 6 Gait distance (FIM): 3=150 ft Gait Assistive Device: FWW Stairs (FIM): 6 PT Plan Treatment/Plan Treatment Plan: Discontinue PT, goals met Treatment Plan: Bed Mobility, Education, Functional Activity Sisi, Functional Strength, Gait, Safety, Therapeutic Exercise, Transfers Treatment Duration: Jun 23, 2018 Frequency: 11 times per week Estimated Hrs Per Day: 1 hour per day Patient and/or Family Agrees t: Yes Time/GCodes Time In: 800 Time Out: 838 Total Billed Treatment Time: 38 Total Billed Treatment 1 visit EX 12 min GT 15 min FA 11 min SUJATHA WOLF PT Jun 18, 2018 09:35
--- NOTE | 2018-06-18 10:34 | Progress Note-Hospitalist ---
Subjective HPI/CC On Admission Date Seen by Provider: Jun 18, 2018 Time Seen by Provider: 09:45 Chief complaint: Status post right knee replacement uncomplicated by Dr. Ayala , POD#0 HPI: This is a 73[address] Santacruz, with a past medical history of HTN, who presents to the fourth floor room 425 after an uncomplicated right knee replacement. is at the bedside along with the daughter. Pt reports she is ready to consume a clear liquid diet and reports the pain is controlled. Subjective/Events-last exam Patient ready for discharge Hyperkalemia 5.1 and she does take potassium 20 him EQ twice daily so will hold off on that and repeat labs on Thursday and send that to Dr. Santacruz primary care provider Pain is controlled Labs reviewed Review of Systems General: Fatigue Objective Exam Vital Signs Vital Signs Date Time Temp Pulse Resp B/P (MAP) Pulse Ox O2 Delivery O2 Flow Rate FiO2 06/18/18 08:00 98.2 59 18 99/55 (70) 98 Nasal Cannula 2.00 Capillary Refill : Less Than 3 Seconds General Appearance: No Apparent Distress, WD/WN, Chronically ill HEENT: PERRL/EOMI, TMs Normal, Normal ENT Inspection, Pharynx Normal Neck: Full Range of Motion, Normal Inspection, Non Tender, Supple, Carotid Bruit Respiratory: Chest Non Tender, Lungs Clear, Normal Breath Sounds, No Accessory Muscle Use, No Respiratory Distress Cardiovascular: Regular Rate, Rhythm, No Edema, No Gallop, No JVD, No Murmur, Normal Peripheral Pulses Gastrointestinal: Normal Bowel Sounds, No Organomegaly, No Pulsatile Mass, Non Tender, Soft Back: Normal Inspection, No CVA Tenderness, No Vertebral Tenderness Extremity: Normal Capillary Refill, Normal Inspection, Normal Range of Motion ( except right leg in CPM machine), Non Tender, No Calf Tenderness, No Pedal Edema Neurologic/Psychiatric: Alert, Oriented x3, No Motor/Sensory Deficits, Normal Mood/Affect Skin: Normal Color, Warm/Dry Lymphatic: No Adenopathy Results/Procedures Lab Laboratory Tests 06/18/18 05:35 Patient resulted labs reviewed. Assessment/Plan Assessment and Plan Assess & Plan/Chief Complaint Assessment: s/p right knee replacement uncomplicated POD # 2 HTN Chronic pancreatitis Chronic diarrhea Hypothyroidism DVT PPx with Lovenox Hyperkalemia Plan: DC home on with walker Hold potassium for now Diagnosis/Problems Diagnosis/Problems (1) Status post right knee replacement Status: Acute (2) Hypothyroidism Status: Chronic Qualifiers: Hypothyroidism type: acquired Qualified Codes: E03.9 - Hypothyroidism, unspecified (3) Hypertension Status: Chronic Qualifiers: Hypertension type: essential hypertension Qualified Codes: I10 - Essential (primary) hypertension (4) Other chronic pancreatitis Status: Chronic (5) GERD (gastroesophageal reflux disease) Status: Chronic Qualifiers: Esophagitis presence: without esophagitis Qualified Codes: K21.9 - Gastro- esophageal reflux disease without esophagitis (6) Osteoarthritis of right knee Status: Chronic Qualifiers: Osteoarthritis type: primary Qualified Codes: M17.11 - Unilateral primary osteoarthritis, right knee (7) Hyperkalemia Status: Acute Clinical Quality Measures DVT/VTE Risk/Contraindication: Risk Factor Score Per Nursin RFS Level Per Nursing on Admit: 3=High EMILY SAMPSON DO Jun 18, 2018 10:34
[2018-06-18] MEDS ORDERED: POTA-51 PO (10:37)
--- NOTE | 2018-06-18 10:45 | NUR ---
LALIT YANCEY demonstrates understanding of discharge instructions and accurately returns instructions upon questioning. Copy of Post-Discharge Instructions and Medication Discharge Instructions given to . LALIT YANCEY is able to manage continuing needs after discharge. Patients belongings returned to . Skin dry and intact; no breakdown noted. Patient discharged from 425-1 on at 1045. LALIT YANCEY left floor via wheelchair, accompanied by staff and .
[2018-06-18 11:12] VITALS: BP 99/55
== END 2018-06-18 10:45 | disposition home health service (06) | DRG 470 ==
LOC: 4TH 05:58 → SURG 05:59 → 4TH 10:25
PROVIDERS: ADMIT Orthopaedic Surgery; ATTEND Orthopaedic Surgery
PROC: 0SRC0J9 Replacement of Right Knee Joint with Synthetic Substitute, Cemented, Open Approach (ICD-10-PCS; principal; 2018-06-16 07:30)
DX: M17.11 Unilateral primary osteoarthritis, right knee (principal); I10 Essential (primary) hypertension; E03.9 Hypothyroidism, unspecified; K21.9 Gastro-esophageal reflux disease without esophagitis; K86.1 Other chronic pancreatitis; J45.909 Unspecified asthma, uncomplicated; G57.92 Unspecified mononeuropathy of left lower limb; E73.9 Lactose intolerance, unspecified; E87.5 Hyperkalemia
CPT/HCPCS: 36415; 73560; 80053; 85007; 85025; 85027; 86850; 86900; 86901; 94664; 94760

== ENCOUNTER → 2018-06-30 | Outpatient (CLI) | payer MEDICARE ==
[~2018-06-30] MED LIST changes: +OXYC1TAB87 PO
--- NOTE | 2018-06-30 15:48 | Diagnostic Imaging Report ---
PROCEDURE: US right lower extremity venous. TECHNIQUE: Multiple real-time grayscale images were obtained over the right lower extremity in various projections. Additional spectral analysis and color Doppler duplex images were also obtained. INDICATION: Right lower extremity pain and swelling. Patient had knee surgery two weeks ago. There is no evidence of a right lower extremity DVT. Right lower extremity deep venous system shows normal compressibility with normal response to augmentation and Valsalva. No fluid collection or mass is seen. IMPRESSION: No evidence of right lower extremity DVT. Dictated by: Dictated on workstation # [id number]
== END ==
LOC: RAD 15:14
PROVIDERS: ATTEND Nurse Practitioner
DX: M79.89 Other specified soft tissue disorders (principal); Z98.890 Other specified postprocedural states

== ENCOUNTER → 2018-12-27 | Outpatient (CLI) | payer MEDICARE ==
--- NOTE | 2018-12-28 13:27 | Diagnostic Imaging Report ---
EXAMINATION: Digital mammogram bilateral screening. The current study was also evaluated with a Computer Aided Detection (CAD) system. 3-D tomosynthesis was also performed and reviewed. INDICATION: Screening. This study was compared to the prior exams of 12/24/2017, 10/23/2016, and 09/03/2015. At this time, there are no current complaints. FINDINGS: There are scattered fibroglandular densities in both breasts which could obscure a lesion. When compared to the prior study, there has been no significant change. There is no primary or secondary sign of malignancy noted. The 3D tomographic views also fail to show any sign of malignancy. IMPRESSION: There is no evidence of malignancy. ACR BI-RADS Category 1: Negative. Result letter will be mailed to the patient. Note: At least 10% of breast cancer is not imaged by mammography. Dictated by: Dictated on workstation # [id number]
== END ==
LOC: RAD 09:30
PROVIDERS: ATTEND Internal Medicine
DX: Z12.31 Encounter for screening mammogram for malignant neoplasm of breast (principal)
CPT/HCPCS: 77067

== ENCOUNTER → 2019-12-07 | Outpatient (CLI) | payer MEDICARE ==
[~2019-12-07] MED LIST changes: -DILT180C PO; +DILT180C85 PO
--- NOTE | 2019-12-07 11:27 | Diagnostic Imaging Report ---
PROCEDURE: MRI lumbar spine. TECHNIQUE: Multiplanar, multisequence MRI of the lumbar spine was performed without contrast. INDICATION: Low back pain with radiculopathy. Correlation is made with prior MRI of lumbar spine from 08/08/2015. Since prior study patient has undergone extensive lumbar spinal fixation surgery. There are postoperative changes of posterior instrumented fusion with vertical stabilization rods and pedicle screws extending from L2 through L5. There is also anterior screws noted at the L3 and L4 levels. Curvature is normal. Anterolisthesis of L4 on L5 is again noted. There has been a decrease in the degree of listhesis at the L3-L4 level since 2016. There has also been a posterior decompression at approximately L4-L5 levels. There is some fluid at the surgical bed L4 level, posterior to the thecal sac measuring 3.8 cm cephalocaudal by 3.1 cm transverse by 2.2 series AP and most suggestive of a postoperative seroma. Vertebral body heights are maintained. The marrow signal intensity is unremarkable. No marrow lesion or acute compression fracture is identified. There is significant degenerative disease at all levels with significant disc space narrowing and desiccation. Conus is unremarkable at the L1 level. T12-L1: Central canal is widely patent. Neural foramina are patent. L1-T2: Broad-based disc/osteophyte complex as well as ligamentous thickening and facet changes result in some trefoil narrowing of the canal. The AP dimensions remain within normal limits but there is significant narrowing of bilateral lateral recesses. There is also severe bilateral neural foraminal stenosis. L2-L3: There is some trefoil configuration of the canal. The AP dimensions are within normal limits. There is significant narrowing of bilateral lateral recesses. There is also fairly significant bilateral neural foraminal stenosis. L3-L4: Central canal is patent. There is significant bilateral lateral recess and neural foraminal stenosis. L4-L5: Disc/osteophyte complex indents the ventral thecal sac. There is narrowing of the canal, moderate. There is significant lateral recess stenosis bilaterally as well as severe bilateral neural foraminal stenosis. L5-S1: Central canal is patent but there is significant bilateral lateral recess stenosis as well as fairly significant bilateral neural foraminal stenosis. Paraspinous tissues demonstrate T2 hyperintense lesions involving both kidneys suggestive of cysts. Largest is on the left measuring 5.6 cm. IMPRESSION: Extensive postsurgical changes of lumbar spine, as described. There is multilevel central canal, lateral recess and neural foraminal stenosis as described level by level above. No acute compression fracture is detected. Dictated by: Dictated on workstation # [id number]
== END ==
LOC: RAD 11-30 09:30
PROVIDERS: ATTEND Nurse Practitioner Family
DX: M48.061 Spinal stenosis, lumbar region without neurogenic claudication (principal)
CPT/HCPCS: 72148

== ENCOUNTER → 2020-03-06 | Outpatient (CLI) | payer MEDICARE ==
[~2020-03-06] MED LIST changes: -PANT40TA3 PO; +PANT40TA52 PO
--- NOTE | 2020-03-06 12:55 | Diagnostic Imaging Report ---
Indication: Routine screening. Comparison is made with prior mammogram from 12/27/2018 and 12/24/2017. 2-D and 3-D bilateral screening mammography was performed with CAD. Scattered fibroglandular densities are identified bilaterally. There are scattered benign-appearing calcifications in both breasts. No mass or malignant appearing microcalcifications are seen. Axillae are unremarkable. IMPRESSION: BI-RADS Category 2 No mammographic features suspicious for malignancy are identified. ACR BI-RADS Category 2: Benign findings. Result letter will be mailed to the patient. Note: At least 10% of breast cancer is not imaged by mammography. Dictated by: Dictated on workstation # [id number]
== END ==
LOC: RAD 10:49
PROVIDERS: ATTEND Internal Medicine
DX: Z12.31 Encounter for screening mammogram for malignant neoplasm of breast (principal)
CPT/HCPCS: 77063; 77067

== ENCOUNTER → 2020-05-28 | Outpatient (CLI) | payer MEDICARE ==
--- NOTE | 2020-05-28 10:28 | Diagnostic Imaging Report ---
INDICATION: Preoperative evaluation prior to knee replacement. PA and lateral views of the chest obtained with comparison made to study of 06/09/2018. FINDINGS: Heart size and pulmonary vascularity are within normal limits, and the lungs are clear, bilaterally. There is probable mild hiatal hernia. Surgical anchors are seen in the proximal humeri with marked narrowing of the rotator cuff interval. Surgical findings are also seen in lumbar spine. IMPRESSION: Unremarkable chest. Dictated by: Dictated on workstation # [id number]
== END ==
LOC: RAD 09:33
PROVIDERS: ATTEND Nurse Practitioner Family
DX: Z01.818 Encounter for other preprocedural examination (principal); R05 Cough; R06.2 Wheezing
CPT/HCPCS: 71046

== ENCOUNTER → 2020-09-06 | Outpatient (CLI) | payer MEDICARE ==
--- NOTE | 2020-09-06 18:54 | Diagnostic Imaging Report ---
PROCEDURE: CT sinuses without contrast TECHNIQUE: Multiple contiguous axial images were obtained through the sinuses without the use of intravenous contrast. Coronal and sagittal reformations were then performed. Auto Exposure Controls were utilized during the CT exam to meet ALARA standards for radiation dose reduction. INDICATION: Allergic rhinitis, recurrent infections. FINDINGS: There is some mild rightward nasal septal spurring and deviation. The turbinates and nasal cavities otherwise unremarkable. The nasal bones themselves are intact. The frontal sinuses are clear. The bony orbits appeared unremarkable. Sphenoid sinuses are clear. There is no mastoid effusion. The external auditory canals and middle ear cavities appear clear. There is uncinectomy and resection of portions of the medial maxillary sinus sanchez. The reconstructed maxillary sinus ostia bilaterally are widely patent and there is resection of multiple ethmoid air cells. The residual cells clear. No findings of active involvement by infection. No significant membrane thickening, air-fluid levels or bony destruction. IMPRESSION: Clear postsurgical paranasal sinuses. Dictated by: Dictated on workstation # [id number]
== END ==
LOC: RAD 15:12
PROVIDERS: ATTEND Otolaryngology Otolaryngology/Facial Plastic Surgery
DX: J30.9 Allergic rhinitis, unspecified (principal)
CPT/HCPCS: 70486

== ENCOUNTER → 2020-11-29 | Outpatient (CLI) | payer MEDICARE ==
--- NOTE | 2020-11-29 11:23 | Diagnostic Imaging Report ---
INDICATION: Pain FINDINGS: 2 view right hip showed no avulsion or other fracture pattern. Femoral head sphericity is maintained. Joint space is preserved. No fracture or dislocation. IMPRESSION: Unremarkable 2 view right hip. Dictated by: Dictated on workstation # [id number]
== END ==
LOC: RAD 10:37
PROVIDERS: ATTEND Registered Nurse
DX: M25.551 Pain in right hip (principal)
CPT/HCPCS: 73502

== ENCOUNTER → 2021-05-14 | Outpatient (CLI) | payer MEDICARE ==
--- NOTE | 2021-05-14 15:30 | Diagnostic Imaging Report ---
EXAMINATION: Digital mammogram bilateral screening with CAD. INDICATION: Screening. COMPARISON: This study was compared to the prior exams of 03/06/2020, 12/27/2018, and 12/24/2017. PERSONAL HISTORY: At this time, there are no current complaints. FINDINGS: The fibroglandular tissue in both breasts is heterogeneously dense. This does limit the sensitivity of this exam. Overall, there does not appear to have been any significant change when compared to the prior study. No primary or secondary sign of malignancy is noted. IMPRESSION: There is no radiographic evidence for malignancy. ACR BI-RADS Category 1: Negative. Result letter will be mailed to the patient. Note: At least 10% of breast cancer is not imaged by mammography. Dictated on workstation # [id number]
== END ==
LOC: RAD 09:56
PROVIDERS: ATTEND Nurse Practitioner Family
DX: Z12.31 Encounter for screening mammogram for malignant neoplasm of breast (principal)
CPT/HCPCS: 77063; 77067

== ENCOUNTER → 2022-07-02 | Outpatient (CLI) | payer MEDICARE ==
[~2022-07-02] MED LIST changes: -MELA1TAB20 PO; +MELA1TAB72 PO
--- NOTE | 2022-07-02 11:57 | Diagnostic Imaging Report ---
Indication: Routine screening. Comparison is made with prior mammogram from 05/14/2021 and 03/06/2020. 2-D and 3-D bilateral screening mammography was performed with CAD. CAD is utilized. The current study was also evaluated with a Computer Aided Detection (CAD) system. Both breasts are heterogeneously dense, limiting the sensitivity of mammography. The parenchymal pattern is stable. No dominant mass or malignant-appearing microcalcifications are seen. There are benign calcifications bilaterally. The axillae are unremarkable. IMPRESSION: BI-RADS Category 2 No mammographic features suspicious for malignancy are identified. ACR BI-RADS Category 2: Benign findings. Result letter will be mailed to the patient. Note: At least 10% of breast cancer is not imaged by mammography. Dictated by: Dictated on workstation # [id number]
== END ==
LOC: RAD 10:05
PROVIDERS: ATTEND Internal Medicine
DX: Z12.31 Encounter for screening mammogram for malignant neoplasm of breast (principal)
CPT/HCPCS: 77063; 77067

== ENCOUNTER 2022-10-05 06:17 | Inpatient (IN) | payer MEDICARE ==
[~2022-10-05] VITALS: Ht 152.4 cm; Wt 66.5 kg
[~2022-10-05 06:17] MED LIST changes: -LOSA100T57 PO; +LOSA100T58 PO; +POTA-330 PO; -POTA-51 PO
[2022-10-05] MEDS ORDERED: ASPIRIN 81 MG CHEW (CHILDREN'S ASA) PO ONE (06:30)
[2022-10-05] MEDS ORDERED: LIDOCAINE 2% VISCOUS 15 ML UDC PO ONE (06:30)
[2022-10-05] MEDS ORDERED: ANTACID SUSP 30 ML UDC (MYLANTA) PO ONE (06:30)
--- NOTE | 2022-10-05 06:41 | ED Chest Pain ---
General Chief Complaint: Chest Pain Stated Complaint: CP Source: patient Exam Limitations: no limitations History of Present Illness Date Seen by Provider: Oct 05, 2022 Time Seen by Provider: 06:27 Initial Comments Here with report of chest pain that started at about 9 PM last night. She has not been able to get comfortable well throughout the night. Denies history of cardiac disease but does have history of pancreatitis and reflux disease. She reports pain is burning and pressure and central and nonradiating. She has never had pain like this before. She does follow with Dr. Santacruz. Does report nausea without vomiting but denies breathing problems. Chest pain is nonradiating but it does seem to vary in intensity since onset last night. Timing/Duration: 12 hours Severity/Quality: moderate, severe, burning, pressure Location: central Radiation: no radiation Activities at Onset: none Prior CP/Workup: no prior cardiac workup Modifying Factors: improves with rest Associated Symptoms: No abdominal pain, No back pain, No fatigue; heartburn, nausea/vomiting; No shortness of breath, No weakness Allergies and Home Medications Allergies Coded Allergies: tomato (Verified Allergy, Intermediate, HIVES, 01/21/11) adhesive tape (Verified Allergy, Unknown, RASH, 06/16/18) chocolate flavor (Unverified Allergy, Unknown, HIVES, 06/17/18) CHOCOLATE FROM UNCODED ALLERGIES fentanyl (Verified Allergy, Unknown, 06/16/18) Sulfa (Sulfonamide Antibiotics) (Verified Adverse Reaction, Intermediate, NAUSEA,, 01/15/11) lactose (Unverified Adverse Reaction, Intermediate, 06/14/12) FROM UNCODED ALLERGIES Uncoded Allergies: CHOCOLATE (Adverse Reaction, Intermediate, 01/21/11) DIARRHEA, AND HIVES Patient Home Medication List Home Medication List Reviewed: Yes Ascorbate Calcium (Vitamin C) 500 Mg Tablet, 1,000 MG PO DAILY, (Reported) Entered as Reported by: GIORGIO GALEANO on 04/17/16 1259 Baclofen (Baclofen) 10 Mg Tablet, 10 MG PO HS, (Reported) Entered as Reported by: GIORGIO GALEANO on 04/17/16 1259 Biotin (Biotin) 5,000 Mcg Tab.rapdis, 5,000 MCG PO DAILY, (Reported) Entered as Reported by: BERNARD ANN on 06/09/18 0940 Ca/D3/Mag/Zinc/Presley/Richard/Mgbor (Caltrate 600+D3+Min Chew Tab) 1 Each Tab.chew, 1 TAB PO DAILY, (Reported) Entered as Reported by: BERNARD ANN on 06/09/18 09 Celecoxib (Celecoxib) 200 Mg Capsule, 200 MG PO BID, (Reported) Entered as Reported by: GIORGIO GALEANO on 04/17/16 125 Cholecalciferol (Vitamin D3) (Vitamin D3) 1,000 Unit Tablet, 1,000 UNIT PO DAILY, (Reported) Entered as Reported by: BERNARD ANN on 06/09/18 09 Diltiazem HCl (Diltiazem 24Hr ER) 180 Mg Cap.er.24h, 180 MG PO HS, (Reported) Entered as Reported by: BERNARD ANN on 06/09/18939 Eplerenone (Eplerenone) 50 Mg Tablet, 50 MG PO DAILY, (Reported) Entered as Reported by: GIORGIO GALEANO on 04/17/16 125 Fluticasone Propionate (Flonase Allergy Relief) 9.9 Ml [place].susp, 1 SPRAY NS DAILY, (Reported) Entered as Reported by: GIORGIO GALEANO on 04/17/16 1259 Furosemide (Furosemide) 40 Mg Tablet, 40 MG PO DAILY, (Reported) Entered as Reported by: GIORGIO GALEANO on 04/17/16 1259 Levocetirizine Dihydrochloride (Levocetirizine Dihydrochloride) 5 Mg Tablet, 5 MG PO DAILY, (Reported) Entered as Reported by: GIORGIO GALEANO on 04/17/16 1259 Levothyroxine Sodium (Levothyroxine Sodium) 88 Mcg Tablet, 88 MCG PO DAILY, (Reported) Entered as Reported by: BERNARD ANN on 06/09/18 09 Losartan Potassium (Losartan Potassium) 100 Mg Tablet, 100 MG PO DAILY, (Reported) Entered as Reported by: GIORGIO GALEANO on 04/17/16 1259 Magnesium Oxide (Magnesium Oxide) 400 Mg Tablet, 400 MG PO DAILY, (Reported) Entered as Reported by: BERNARD ANN on 06/09/18 09 Melatonin/Pyridoxine HCl (B6) (Melatonin 10 mg Tablet) 1 Each Tab.mphase, 10 MG PO HS, (Reported) Entered as Reported by: GIORGIO GALEANO on 04/17/16 1259 Multivitamin (Multiple Vitamins) 1 Each Tablet, 1 TAB PO DAILY, (Reported) Entered as Reported by: BERNARD ANN on 06/09/18 0940 Oxycodone HCl/Acetaminophen (Percocet 5-325 mg Tablet) 1 Each Tablet, 1 TAB PO Q4H Prescribed by: PATTY DAMIAN on 06/16/18 0721 Pantoprazole Sodium (Pantoprazole Sodium) 40 Mg Tablet.dr, 40 MG PO DAILY, (Reported) Entered as Reported by: BERNARD ANN on 06/09/18 0940 Potassium Chloride (Potassium Chloride) 20 Meq Tablet.er, 20 MEQ PO BID Prescribed by: EMILY SAMPSON on 06/18/18 1037 Tramadol HCl/Acetaminophen (Tramadol-Acetaminophn 37.5-325) 1 Each Tablet, 1 TAB PO DAILY PRN for PAIN-MODERATE, (Reported) Entered as Reported by: BERNARD ANN on 06/09/18 09 Vitamin B Complex (Vitamin B Complex) 1 Each Capsule, 1 CAP PO DAILY, (Reported) Entered as Reported by: BERNARD ANN on 06/09/18 09 Vitamin E (Dl,Tocopheryl Acet) (Vitamin E) 1,000 Unit Capsule, 1,000 UNIT PO DAILY, (Reported) Entered as Reported by: BERNARD ANN on 06/09/18 09 Review of Systems Review of Systems Constitutional: see HPI; No chills, No fever EENTM: No Nose Congestion, No Throat Pain Respiratory: Denies Cough, Denies Shortness of Air Cardiovascular: Denies Chest Pain, Denies Edema Gastrointestinal: Denies Abdominal Pain; Nausea; Denies Vomiting Genitourinary: No Symptoms Reported Musculoskeletal: no symptoms reported Skin: no symptoms reported Psychiatric/Neurological: No Symptoms Reported Past Rbunnmv-Egqaoh-Jqglpa Hx Patient Social History Tobacco Use?: No Substance use?: No Alcohol Use?: Yes Alcohol Frequency: Rarely Pt feels they are or have been: No Immunizations Up To Date Tetanus Booster (TDap): Unknown Seasonal Allergies Seasonal Allergies: Yes Past Medical History Surgery/Hospitalization HX: PANCREATITIS, HYPOTHRYOIDISM, HTN, GERD, AFIB Surgeries: Yes (ROTATOR CUFF X3, CATARACT REMOVAL, BACK FUSION) Hysterectomy Respiratory: Yes Asthma Cardiac: Yes Hypertension Neurological: No Reproductive Disorders: Yes (YEAST INFECTIONS) Female Reproductive Disorders: Denies [employer] History: Hysterectomy Sexually Transmitted Disease: No HIV/AIDS: No Genitourinary: No Gastrointestinal: Yes (INFLAMMED BOWEL) Gastroesophageal Reflux, Pancreatitis, Chronic Diarrhea Musculoskeletal: Yes (HX BACK FUSION) Arthritis Endocrine: Yes Hypothyroidsim HEENT: Yes (GLASSES) Loss of Vision: Bilateral Hearing Impairment: Denies Cancer: No Psychosocial: No Integumentary: No Blood Disorders: No Adverse Reaction/Blood Tranf: No (HAS HAD BLODD WITH NO REACTION) Family Medical History Reviewed Nursing Family Hx No Pertinent Family Hx Physical Exam Vital Signs Vital Signs - First Documented 10/05/22 06:23 Temp 36.5 Pulse 48 Resp 16 B/P (MAP) 135/67 (89) Pulse Ox 97 O2 Delivery Room Air Capillary Refill : Less Than 3 Seconds Height, Weight, BMI Height: 5'0.50" Weight: 160lbs. 0.0oz. [id number]; 30.7 BMI Method:Stated General Appearance: WD/WN, Mild Distress HEENT: PERRL/EOMI, Pharynx Normal Neck: Non Tender, Supple Respiratory: Lungs Clear, Normal Breath Sounds Cardiovascular: Regular Rate, Rhythm, No Murmur Gastrointestinal: Non Tender, Soft Extremity: Normal Range of Motion, Non Tender Neurologic/Psychiatric: Alert, Oriented x3 Skin: Normal Color, Warm/Dry Progress/Results/Core Measures Results/Orders Lab Results Laboratory Tests Test 10/05/22 06:35 Range/Units White Blood Count 9.6 4.3-11.0 10^3/uL Red Blood Count 4.19 3.80-5.11 10^6/uL Hemoglobin 13.4 11.5-16.0 g/dL Hematocrit 40 35-52 % Mean Corpuscular Volume 95 80-99 fL Mean Corpuscular Hemoglobin 32 25-34 pg Mean Corpuscular Hemoglobin Concent 34 32-36 g/dL Red Cell Distribution Width 12.7 10.0-14.5 % Platelet Count 176 130-400 10^3/uL Mean Platelet Volume 11.1 9.0-12.2 fL Immature Granulocyte % (Auto) 0 % Neutrophils (%) (Auto) 78 H 42-75 % Lymphocytes (%) (Auto) 13 12-44 % Monocytes (%) (Auto) 9 0-12 % Eosinophils (%) (Auto) 0 0-10 % Basophils (%) (Auto) 0 0-10 % Neutrophils # (Auto) 7.5 1.8-7.8 10^3/uL Lymphocytes # (Auto) 1.2 1.0-4.0 10^3/uL Monocytes # (Auto) 0.9 0.0-1.0 10^3/uL Eosinophils # (Auto) 0.0 0.0-0.3 10^3/uL Basophils # (Auto) 0.0 0.0-0.1 10^3/uL Immature Granulocyte # (Auto) 0.0 0.0-0.1 10^3/uL Prothrombin Time 12.8 12.2-14.7 SEC INR Comment 0.9 0.8-1.4 Activated Partial Thromboplast Time 27 24-35 SEC Sodium Level 142 135-145 MMOL/L Potassium Level 4.4 3.6-5.0 MMOL/L Chloride Level 106 98-107 MMOL/L Carbon Dioxide Level 22 21-32 MMOL/L Anion Gap 14 5-14 MMOL/L Blood Urea Nitrogen 26 H 7-18 MG/DL Creatinine 1.01 0.60-1.30 MG/DL Estimat Glomerular Filtration Rate 58 BUN/Creatinine Ratio 26 Glucose Level 147 H 70-105 MG/DL Calcium Level 9.4 8.5-10.1 MG/DL Corrected Calcium 9.4 8.5-10.1 MG/DL Magnesium Level 2.2 1.6-2.4 MG/DL Total Bilirubin 0.9 0.1-1.0 MG/DL Aspartate Amino Transf (AST/SGOT) 28 5-34 U/L Alanine Aminotransferase (ALT/SGPT) 18 0-55 U/L Alkaline Phosphatase 85 40-136 U/L Myoglobin 48.1 10.0-92.0 NG/ML Troponin I < 0.028 <0.028 NG/ML Total Protein 7.0 6.4-8.2 GM/DL Albumin 4.0 3.2-4.5 GM/DL Lipase 30113 H 8-78 U/L My Orders Orders - FERMIN STODDARD MD Cbc With Automated Diff (10/05/22 06:29) Magnesium (10/05/22 06:29) Chest 1 View, Ap/Pa Only (10/05/22 06:29) Ekg Tracing (10/05/22 06:29) Comprehensive Metabolic Panel (10/05/22 06:29) Myoglobin Serum (10/05/22 06:29) Protime With Inr (10/05/22 06:29) Partial Thromboplastin Time (10/05/22 06:29) O2 (10/05/22 06:29) Monitor-Rhythm Ecg Trace Only (10/05/22 06:29) Lipid Panel (10/06/22 06:00) Ed Iv/Invasive Line Start (10/05/22 06:29) Lipase (10/05/22 06:29) Troponin I [place] (10/05/22 06:29) Aspirin Chewable Tablet (Baby Aspirin Ch (10/05/22 06:30) Lidocaine 2% Viscous 15 Ml (Xylocaine Vi (10/05/22 06:30) Antacid Suspension (Mylanta Suspension (10/05/22 06:30) Ct Abdomen/Pelvis W (10/05/22 08:31) Iohexol Injection (Omnipaque 350 Mg/Ml 1 (10/05/22 08:45) Received Contrast (Hold Metformin- Contr (10/05/22 08:45) Ns (Ivpb) (Sodium Chloride 0.9% Ivpb Bag (10/05/22 08:45) Ns Iv 1000 Ml (Sodium Chloride 0.9%) (10/05/22 09:30) Code/Resuscitation (10/05/22 09:38) Ed Admission (Communication) (10/05/22 09:38) Medications Given in ED Current Medications Medications Dose Ordered Sig/Caren Route Start Time Stop Time Status Last Admin Dose Admin Al Hydrox/Mg Hydrox/Simethicone 30 ml ONCE ONCE PO 10/05/22 06:30 10/05/22 06:32 DC 10/05/22 06:37 30 ML Aspirin 324 mg ONCE ONCE PO 10/05/22 06:30 10/05/22 06:32 DC 10/05/22 06:37 324 MG Iohexol 100 ml ONCE ONCE IV 10/05/22 08:45 10/05/22 08:46 DC 10/05/22 08:43 79 ML Lidocaine HCl 15 ml ONCE ONCE PO 10/05/22 06:30 10/05/22 06:32 DC 10/05/22 06:37 15 ML Sodium Chloride 100 ml ONCE ONCE IV 10/05/22 08:45 10/05/22 08:46 DC 10/05/22 08:43 80 ML Sodium Chloride 1,000 ml @ 0 mls/hr Q0M ONCE IV 10/05/22 09:30 10/05/22 09:31 DC 10/05/22 09:46 999 MLS/HR Vital Signs/I&O 10/05/22 10/05/22 06:23 07:00 Temp 36.5 Pulse 48 Resp 16 B/P (MAP) 135/67 (89) Pulse Ox 97 96 O2 Delivery Room Air Room Air Progress Progress Note : Progress Note Seen and evaluated. IV, labs, EKG and chest x-ray ordered. Labs include CBC, CMP, troponin, myoglobin, coags and lipase. We will give aspirin 324 mg p.o. and initiate GI cocktail to start. Monitor patient. Differential diagnosis includes cardiac event, electrolyte abnormality, reflux, pancreatitis 0730: Chest x-ray reviewed by me shows no obvious acute abnormality on my interpretation. Troponin is negative. CBC is normal and chemistry is grossly normal. We are pending lipase. Coags are normal. Monitor patient. 0832: Pain is resolved. Lipase noted to be 16,000 658 which is grossly elevated. Given her history of pancreatitis and pancreas enzyme elevation, CT abdomen pelvis with contrast has been ordered. This was discussed with patient and family who agree. Monitor patient. 0935: CT abdomen pelvis reviewed by me and does show inflammatory stranding around the pancreas without obvious fluid collection or abscess out abdominal free air noted on my interpretation. Radiology report agrees. 0945: I have discussed the case with Dr. Soriano, hospitalist on-call. She seems to have simple pancreatitis at this point and patient believes it was related to eating hard salami. She has not had a flare in 10 years. Normal saline 1 L bolus now and we will continue hydration and monitoring, fluids and minimal diet pending improved periodic enzymes. This was discussed with patient and family who agree. Dr. Soriano accepts patient for admission, inpatient status. Family agree with plan. I did discuss CODE STATUS with the patient and family she requests full code. Initial ECG Impression Date: Oct 05, 2022 Initial ECG Impression Time: 06:36 Initial ECG Rate: 48 Initial ECG Rhythm: S.Yordy Comment Sinus bradycardia with artifact. Left axis deviation. No evidence of ST elevation MS. Similar but slower than previous. Interpreted by me. Diagnostic Imaging Diagonstic Imaging: Xray Plain Films/CT/US/NM/MRI: chest Comments [facility] [place], [place] NAME: LALIT YANCEY [facility] REC#: [id number] PT STATUS: REG ER : 1945 PHYSICIAN: FERMIN STODDARD MD ADMIT DATE: 10/05/22/ER Draft Date of Exam:10/05/22 CHEST 1 VIEW, AP/PA ONLY EXAMINATION: Chest radiograph, portable AP view. DATE: 10/05/2022 7:27 AM INDICATION: 77-year-old female, chest pain. COMPARISON: Chest radiographs May 28, 2020. FINDINGS: Heart size and mediastinal contours are unchanged. There is no identified pneumothorax. There is no large pleural effusion. There is no identified focal airspace consolidation. There are anchors in both humeral heads. Both humeral heads are superiorly subluxed. There is a deformity of the right humeral head. There is spinal hardware. IMPRESSION: 1. No identified acute cardiopulmonary abnormality. Dictated on workstation # [id number] Dict: 10/05/22 0731 Trans: 10/05/22 0757 [facility] [id number] Interpreted by: LUIS DIANE MD Electronically signed by: Diagonstic Imaging: CT Plain Films/CT/US/NM/MRI: abdomen, pelvis Comments [facility] [place], [place] NAME: LALIT YANCEY [facility] REC#: [id number] PT STATUS: REG ER : 1945 PHYSICIAN: FERMIN STODDARD MD ADMIT DATE: 10/05/22/ER Draft Date of Exam:10/05/22 CT ABDOMEN/PELVIS W PROCEDURE: CT abdomen and pelvis with contrast. TECHNIQUE: Multiple contiguous axial images were obtained through the abdomen and pelvis after administration of intravenous contrast. Auto Exposure Controls were utilized during the CT exam to meet ALARA standards for radiation dose reduction. All CT scans use one or more of the following dose optimizing techniques: automated exposure control, MA and/or KvP adjustment based on patient size and exam type or iterative reconstruction. DATE: October 05, 2022. INDICATIONS: 77-year-old female, chest and abdominal pain. COMPARISON: None. FINDINGS: There is mild dependent atelectasis in the right and left lower lobes. The heart is not enlarged. There is no identified pericardial effusion. The liver is unremarkable in size and contour. There are subcentimeter low-attenuation liver lesions too small to characterize. There is a benign cyst in left lobe of the liver on axial image 16. There is a benign cyst in the right lobe of the liver on axial image 44. The main, right, and left portal veins are patent. The gallbladder is surgically absent. There is no identified intrahepatic or extrahepatic bile duct dilation. There is stranding along the course of the common bile duct. There is stranding adjacent to the pancreas. The main pancreatic duct is not abnormally dilated. There is no evidence of pancreatic necrosis. The spleen is normal in size. The adrenal glands are unremarkable. There are benign renal cysts bilaterally in axial image 44. There are subcentimeter low-attenuation renal lesions bilaterally which are too small to characterize. The urinary collecting systems are not distended. There is no identified renal or ureteral stone. The urinary bladder is unremarkable. The uterus is not seen and likely surgically absent. There is diverticulosis without evidence of acute diverticulitis. There is no evidence of acute appendicitis. There is no free intraperitoneal air. There is no focal drainable fluid collection. There is no sizable volume free fluid in the abdomen or pelvis. There is wall thickening of the duodenum. There are atherosclerotic calcifications. There is no identified abnormally enlarged lymph node in the abdomen or pelvis meeting CT size criteria for adenopathy. There is chondrocalcinosis. There are multilevel degenerative changes of the spine. There are postoperative changes of the lumbar spine. There is grade 1 retrolisthesis of L1 on L2. There is grade 1 anterolisthesis of L3 on L4 and also of L4 on L5. IMPRESSION: 1. Inflammatory stranding adjacent to the pancreas suspicious for acute pancreatitis. Recommend correlation with lipase levels. No evidence of pancreatic necrosis. 2. Wall thickening of the duodenum with adjacent inflammatory stranding which could relate to the adjacent pancreatic process versus duodenitis. 3. No biliary ductal dilation. Dictated on workstation # [id number] Dict: 10/05/22900 Trans: 10/05/22912 [facility] [id number] Interpreted by: LUIS DIANE MD Electronically signed by: Departure Communication (Admissions) Time/Spoke to Admitting Phy: 09:45 Impression Primary Impression: Pancreatitis Qualified Codes: K85.90 - Acute pancreatitis without necrosis or infection, unspecified Disposition: ADMITTED INPATIENT Condition: Stable Admissions Decision to Admit Reason: Admit from ER (General) Decision to Admit/Date: Oct 05, 2022 Time/Decision to Admit Time: 09:45 Departure-Patient Inst. Referrals: LETTY SANTACRUZ MD (PCP/Family) Primary Care Physician FERMIN STODDARD MD Oct 05, 2022 06:40
[2022-10-05 06:43] LABS: BASOPHILS % (AUTO) 0 % (0-10); EOSINOPHILS % (AUTO) 0 % (0-10); HEMATOCRIT 40 % (35-52); HEMOGLOBIN 13.4 g/dL (11.5-16.0); LYMPHOCYTES # (AUTO) 1.2 10^3/uL (1.0-4.0); LYMPHOCYTES % (AUTO) 13 % (12-44); MEAN CORPUSCULAR HEMOGLOBIN 32 pg (25-34); MEAN CORPUSCULAR HGB CONC 34 g/dL (32-36); MEAN CORPUSCULAR VOLUME 95 fL (80-99); MEAN PLATELET VOLUME 11.1 fL (9.0-12.2); MONOCYTES # (AUTO) 0.9 10^3/uL (0.0-1.0); MONOCYTES % (AUTO) 9 % (0-12); NEUTROPHILS # (AUTO) 7.5 10^3/uL (1.8-7.8); NEUTROPHILS % (AUTO) 78 % (42-75); PLATELET COUNT 176 10^3/uL (130-400); WHITE BLOOD COUNT 9.6 10^3/uL (4.3-11.0)
[2022-10-05 06:58] LABS: INR 0.9 (0.8-1.4); PROTHROMBIN TIME PATIENT 12.8 SEC (12.2-14.7)
[2022-10-05 07:02] LABS: CHLORIDE 106 MMOL/L (98-107); POTASSIUM 4.4 MMOL/L (3.6-5.0); SODIUM 142 MMOL/L (135-145)
[2022-10-05 07:03] LABS: CALCIUM 9.4 MG/DL (8.5-10.1)
[2022-10-05 07:04] LABS: GLUCOSE 147 MG/DL (70-105)
[2022-10-05 07:06] LABS: BILIRUBIN,TOTAL 0.9 MG/DL (0.1-1.0); CARBON DIOXIDE 22 MMOL/L (21-32)
[2022-10-05 07:08] LABS: ALKALINE PHOSPHATASE 85 U/L (40-136); CREATININE SERUM 1.01 MG/DL (0.60-1.30); GFR ESTIMATED 58
[2022-10-05 07:09] LABS: BUN/CREATININE RATIO 26
[2022-10-05 07:11] LABS: ALANINE AMINOTRANSFERASE 18 U/L (0-55); MAGNESIUM 2.2 MG/DL (1.6-2.4)
--- NOTE | 2022-10-05 07:59 | Diagnostic Imaging Report ---
EXAMINATION: Chest radiograph, portable AP view. DATE: 10/05/2022 7:27 AM INDICATION: 77-year-old female, chest pain. COMPARISON: Chest radiographs May 28, 2020. FINDINGS: Heart size and mediastinal contours are unchanged. There is no identified pneumothorax. There is no large pleural effusion. There is no identified focal airspace consolidation. There are anchors in both humeral heads. Both humeral heads are superiorly subluxed. There is a deformity of the right humeral head. There is spinal hardware. IMPRESSION: 1. No identified acute cardiopulmonary abnormality. Dictated by: Dictated on workstation # [id number]
[2022-10-05 08:27] LABS: LIPASE 16658 U/L (8-78)
[2022-10-05] MEDS ORDERED: HOLD METFORMIN - RECEIVED CONTRAST 20 ML VIAL IV SCH (08:45)
[2022-10-05] MEDS ORDERED: NS 100 ML (IVPB) BAG IV ONE (08:45)
[2022-10-05] MEDS ORDERED: IOHEXOL 350 MG/ML 100 ML (OMNIPAQUE 350) VIAL IV ONE (08:45)
--- NOTE | 2022-10-05 09:15 | Diagnostic Imaging Report ---
PROCEDURE: CT abdomen and pelvis with contrast. TECHNIQUE: Multiple contiguous axial images were obtained through the abdomen and pelvis after administration of intravenous contrast. Auto Exposure Controls were utilized during the CT exam to meet ALARA standards for radiation dose reduction. All CT scans use one or more of the following dose optimizing techniques: automated exposure control, MA and/or KvP adjustment based on patient size and exam type or iterative reconstruction. DATE: October 05, 2022. INDICATIONS: 77-year-old female, chest and abdominal pain. COMPARISON: None. FINDINGS: There is mild dependent atelectasis in the right and left lower lobes. The heart is not enlarged. There is no identified pericardial effusion. The liver is unremarkable in size and contour. There are subcentimeter low-attenuation liver lesions too small to characterize. There is a benign cyst in left lobe of the liver on axial image 16. There is a benign cyst in the right lobe of the liver on axial image 44. The main, right, and left portal veins are patent. The gallbladder is surgically absent. There is no identified intrahepatic or extrahepatic bile duct dilation. There is stranding along the course of the common bile duct. There is stranding adjacent to the pancreas. The main pancreatic duct is not abnormally dilated. There is no evidence of pancreatic necrosis. The spleen is normal in size. The adrenal glands are unremarkable. There are benign renal cysts bilaterally in axial image 44. There are subcentimeter low-attenuation renal lesions bilaterally which are too small to characterize. The urinary collecting systems are not distended. There is no identified renal or ureteral stone. The urinary bladder is unremarkable. The uterus is not seen and likely surgically absent. There is diverticulosis without evidence of acute diverticulitis. There is no evidence of acute appendicitis. There is no free intraperitoneal air. There is no focal drainable fluid collection. There is no sizable volume free fluid in the abdomen or pelvis. There is wall thickening of the duodenum. There are atherosclerotic calcifications. There is no identified abnormally enlarged lymph node in the abdomen or pelvis meeting CT size criteria for adenopathy. There is chondrocalcinosis. There are multilevel degenerative changes of the spine. There are postoperative changes of the lumbar spine. There is grade 1 retrolisthesis of L1 on L2. There is grade 1 anterolisthesis of L3 on L4 and also of L4 on L5. IMPRESSION: 1. Inflammatory stranding adjacent to the pancreas suspicious for acute pancreatitis. Recommend correlation with lipase levels. No evidence of pancreatic necrosis. 2. Wall thickening of the duodenum with adjacent inflammatory stranding which could relate to the adjacent pancreatic process versus duodenitis. 3. No biliary ductal dilation. Dictated by: Dictated on workstation # [id number]
[2022-10-05] MEDS ORDERED: NS IV 1000 ML 1,000 ML IV ONE (09:30)
[2022-10-05] MEDS ORDERED: LACTULOSE SYRUP 10GM/15ML (ENULOSE) 30ML UDC PO PRN (10:00)
[2022-10-05] MEDS ORDERED: MILK OF MAGNESIA 400 MG/5 ML 30 ML UDC PO PRN (10:00)
[2022-10-05] MEDS ORDERED: ANTACID SUSP 30 ML UDC (MYLANTA) PO PRN (10:00)
[2022-10-05] MEDS ORDERED: CALCIUM CARBONATE 500 MG (TUMS) TAB.CHEW PO PRN (10:00)
[2022-10-05] MEDS ORDERED: MELATONIN 3 MG TABLET PO PRN (10:00)
[2022-10-05] MEDS ORDERED: ACETAMINOPHEN 325 MG TABLET PO PRN (10:00)
[2022-10-05] MEDS ORDERED: morphine INJ 10 MG/ML 1ML (SYR OR VIAL) IVP PRN (10:00)
[2022-10-05] MEDS ORDERED: ONDANSETRON 4 MG/2 ML (SDV) Z0FRAN IV PRN (10:00)
[2022-10-05] MEDS ORDERED: BISACODYL 10 MG SUPP (DULCOLAX) PR PRN (10:00)
[2022-10-05] MEDS ORDERED: ONDANSETRON 4 MG (ZOFRAN) ORAL DISSOLVE TAB PO PRN (10:00)
[2022-10-05] MEDS ORDERED: polyethylene glycoL POWDER 17 GM (MIRALAX) PACK PO PRN (10:00)
[2022-10-05 10:09] VITALS: BP 135/61
[2022-10-05] MEDS: ENOXAPARIN 40 MG/0.4 ML (LOVENOX) SYR SC SCH (10:18)
[2022-10-05] MEDS: LACTATED RINGERS 1,000 ML IV SCH ×2 (10:18→21:17)
[2022-10-05 11:05] VITALS: BP 147/70
--- NOTE | 2022-10-05 14:22 | History & Physical-Hospitalist ---
History of Present Illness HPI/Chief Complaint Francesca Powell is a 77 year old female with PMH HTN, asthma, arthritis, chronic pancreatitis, who presented with abdominal pain. The pain was in the center of her abdomen and radiating up to her sternum. She denies nausea and vomiting. She denies fevers and chills. She is asking about eating or getting a drink of water. She says the pain has now improved and is more of a discomfort. Source: patient Exam Limitations: no limitations Date Seen 10/05/22 Time Seen by a Provider: 11:10 Attending Physician Tristian Santacruz MD PCP Admitting Physician: Smith Marquez MD Attending Physician: Smith Marquez MD Referring Physician Date of Admission Oct 05, 2022 at 10:06 Home Medications & Allergies Home Medications Reviewed patient Home Medication Reconciliation performed by pharmacy medication reconciliations body technician/painter and/or nursing. Patients Allergies have been reviewed. Allergies Allergies Coded Allergies tomato (Verified Allergy, Intermediate, HIVES, 01/21/11) adhesive tape (Verified Allergy, Unknown, RASH, 06/16/18) chocolate flavor (Unverified Allergy, Unknown, HIVES, 06/17/18) CHOCOLATE FROM UNCODED ALLERGIES fentanyl (Verified Allergy, Unknown, 06/16/18) Sulfa (Sulfonamide Antibiotics) (Verified Adverse Reaction, Intermediate, ODALIS SEA,, 01/15/11) lactose (Unverified Adverse Reaction, Intermediate, 06/14/12) FROM UNCODED ALLERGIES Uncoded Allergies CHOCOLATE ( Adverse Reaction, Intermediate, 01/21/11) DIARRHEA, AND HIVES Past Rmggmsn-[id number]-Mhftrt Hx Patient Social History Tobacco Use?: No Smoking Status: Never a Smoker Use of E-Cig and/or Vaping dev: No Substance use?: No Alcohol Use?: Yes Alcohol type: Beer Alcohol Frequency: Rarely Pt feels they are or have been: No Immunizations Up To Date Date of Influenza Vaccine: Jan 04, 2018 Tetanus Booster (TDap): Unknown Date of Pneumonia Vaccine: Dec 28, 2013 Seasonal Allergies Seasonal Allergies: Yes Current Status status: No status: No Advance Directives: No Communicates: Verbally Primary Language: Lithuanian Preferred Spoken Language: Lithuanian Is interpretation needed?: No Sensory deficits: Vision impairment Past Medical History Surgeries: Hysterectomy Asthma Hypertension 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 Sexually Transmitted Disease: No HIV/AIDS: No Gastroesophageal Reflux, Pancreatitis, Chronic Diarrhea Arthritis Hypothyroidsim Loss of Vision: Bilateral Hearing Impairment: Denies Blood Disorders: No Adverse Reaction/Blood Tranf: No (HAS HAD BLODD WITH NO REACTION) Family Medical History Reviewed Nursing Family Hx No Pertinent Family Hx Review of Systems Constitutional: no symptoms reported Respiratory: no symptoms reported Cardiovascular: no symptoms reported Gastrointestinal: abdominal pain Physical Exam Physical Exam Vital Signs Vital Signs - First Documented 10/05/22 06:23 Temp 36.5 Pulse 48 Resp 16 B/P (MAP) 135/67 (89) Pulse Ox 97 O2 Delivery Room Air Capillary Refill : Less Than 3 Seconds Height, Weight, BMI Height: 5'0.50" Weight: 160lbs. 0.0oz. 72.699651tg; 28.63 BMI Method:Stated General Appearance: No Apparent Distress, WD/WN HEENT: PERRL/EOMI, Pharynx Normal Neck: Normal Inspection, Supple Respiratory: Lungs Clear, Normal Breath Sounds, No Respiratory Distress Cardiovascular: No Edema, No Murmur, Bradycardia Gastrointestinal: Normal Bowel Sounds, Soft, Tenderness (epigastric) Extremity: Normal Inspection, No Pedal Edema Neurologic/Psychiatric: Alert, Normal Mood/Affect Results Results/Procedures Labs Laboratory Tests 10/05/22 06:35 Patient resulted labs reviewed. Imaging: Reviewed Imaging Report Assessment/Plan Admission Diagnosis Acute on chronic pancreatitis Admission Status: Inpatient Order (span 2 midnights) Reason for Inpatient Admission: IV fluids Pain medications Assessment and Plan Acute on chronic pancreatitis IV fluids Pain regimen Clear liquids Lipid panel ordered Hold diuretics HTN Asthma GERD Arthritis Hypothyroidism Continue home meds DVT prophylaxis: Lovenox Diagnosis/Problems Diagnosis/Problems (1) Pancreatitis Qualifiers: Chronicity: acute Pancreatitis type: unspecified pancreatitis type Acute pancreatitis complication: no infection or necrosis Qualified Codes: K85.90 - Acute pancreatitis without necrosis or infection, unspecified (2) Other chronic pancreatitis Status: Chronic (3) Hypertension Status: Chronic (4) GERD (gastroesophageal reflux disease) Status: Chronic (5) Hypothyroidism Status: Chronic SMITH MARQUEZ MD Oct 05, 2022 14:22
[2022-10-05 15:22] VITALS: BP 147/61
[2022-10-05 19:04] VITALS: BP 136/65
[2022-10-05] MEDS ORDERED: LIPASE/AMYLASE/PROTEASE (PANCRELIPASE) 5,000 UNITS CAP ONE (19:31)
[2022-10-05] MEDS: LIPASE/AMYLASE/PROTEASE (PANCRELIPASE) 5,000 UNITS CAP PO SCH (19:33)
[2022-10-05] MEDS: DOCUSATE SODIUM 100 MG (COLACE) CAP PO SCH (19:36)
[2022-10-05] MEDS: SENNOSIDES 8.6 MG (SENOKOT) TAB PO SCH (19:36)
[2022-10-05] MEDS ORDERED: BACLOFEN 10 MG (LIORESAL) TAB PO SCH (21:00)
[2022-10-05] MEDS ORDERED: MELATONIN 10 MG TABLET PO SCH (21:00)
[2022-10-05 23:19] VITALS: BP 120/58
[2022-10-06 03:07] VITALS: BP 119/60
[2022-10-06 05:04] LABS: BASOPHILS % (AUTO) 1 % (0-10); EOSINOPHILS % (AUTO) 0 % (0-10); HEMATOCRIT 33 % (35-52); HEMOGLOBIN 11.2 g/dL (11.5-16.0); LYMPHOCYTES # (AUTO) 1.3 10^3/uL (1.0-4.0); LYMPHOCYTES % (AUTO) 22 % (12-44); MEAN CORPUSCULAR HEMOGLOBIN 33 pg (25-34); MEAN CORPUSCULAR HGB CONC 34 g/dL (32-36); MEAN CORPUSCULAR VOLUME 97 fL (80-99); MEAN PLATELET VOLUME 11.2 fL (9.0-12.2); MONOCYTES # (AUTO) 0.6 10^3/uL (0.0-1.0); MONOCYTES % (AUTO) 10 % (0-12); NEUTROPHILS % (AUTO) 67 % (42-75); PLATELET COUNT 158 10^3/uL (130-400)
[2022-10-06 05:31] LABS: ALBUMIN 3.1 GM/DL (3.2-4.5); CALCIUM 8.3 MG/DL (8.5-10.1); CREATININE SERUM 0.73 MG/DL (0.60-1.30); POTASSIUM 3.5 MMOL/L (3.6-5.0); TOTAL PROTEIN 5.1 GM/DL (6.4-8.2)
[2022-10-06] MEDS: LACTATED RINGERS 1,000 ML IV SCH (06:02)
[2022-10-06] MEDS ORDERED: LEVOTHYROXINE 88 MCG (LEVOTHORID) TAB PO SCH (06:30)
[2022-10-06] MEDS: DOCUSATE SODIUM 100 MG (COLACE) CAP PO SCH (07:42)
[2022-10-06] MEDS: SENNOSIDES 8.6 MG (SENOKOT) TAB PO SCH (07:42)
[2022-10-06 07:49] VITALS: BP 134/60
[2022-10-06] MEDS: ENOXAPARIN 40 MG/0.4 ML (LOVENOX) SYR SC SCH (08:43)
[2022-10-06] MEDS: LIPASE/AMYLASE/PROTEASE (PANCRELIPASE) 5,000 UNITS CAP PO SCH ×2 (08:44→11:49)
[2022-10-06] MEDS ORDERED: FLUTICASONE NASAL SPRAY (FLONASE) 16 GM BTL NS SCH (09:00)
[2022-10-06] MEDS ORDERED: LORATADINE (CLARITIN) 10 MG TAB PO SCH (09:00)
[2022-10-06] MEDS ORDERED: PANTOPRAZOLE 40 MG (PROTONIX) TAB PO SCH (09:00)
[2022-10-06] MEDS ORDERED: LOSARTAN 100 MG (COZAAR) TABLET PO SCH (09:00)
[2022-10-06] MEDS ORDERED: NON-FORMULARY MEDICATION 1 EA EA (Levocetirizine Dihydrochloride 5 MG) PO SCH (09:00)
--- NOTE | 2022-10-06 10:13 | Discharge Inst-Simple/Standard ---
Discharge Inst-Standard Discharge Medications New, Converted or Re-Newed RX: Transmitted to Pharmacy Patient Instructions/Follow Up Plan of Care/Instructions/FU: Please continue to take your medications as written. Please follow up with your primary care doctor to follow up this hospital stay. Activity as Tolerated: Yes Discharge Diet: Avoid Fatty Foods Return to The Hospital For: Chest pain, abdominal pain, shortness of breath, fever, weakness, if you feel you are getting worse. LIEN LINDO MD Oct 06, 2022 10:13
[2022-10-06 11:12] VITALS: BP 125/55
== END 2022-10-06 14:21 | disposition home or self-care (01) | DRG 440 ==
LOC: EDUNIT# 06:17 → ER 06:19 → 4TH 10:06
PROVIDERS: ADMIT Internal Medicine; ATTEND Internal Medicine
DX: K85.90 Acute pancreatitis without necrosis or infection, unspecified (principal); K86.1 Other chronic pancreatitis; I10 Essential (primary) hypertension; J45.909 Unspecified asthma, uncomplicated; M19.90 Unspecified osteoarthritis, unspecified site; K21.9 Gastro-esophageal reflux disease without esophagitis; Z79.890 Hormone replacement therapy; Z79.899 Other long term (current) drug therapy
CPT/HCPCS: 36415; 71045; 74177; 80053; 80061; 83690; 83735; 83874; 84484; 85025; 85610; 85730; 93005; 93041